=== PATIENT | male | born 1945 | race Caucasian/White ===

== ENCOUNTER 2018-05-05 06:56 | Day surgery (SDC) | payer OTHER ==
[~2018-05-05] VITALS: Ht 182.9 cm; Wt 99.0 kg
[~2018-05-05 06:56] MED LIST: ACET500; ACET500 PO; AMLO5 PO; ASCO500 PO; ASPI325 PO; ASPI81CH PO; ATOR80 PO; ATORVASTATIN; Aspirin EC325 MG PO; Aspirin EC81 MG PO; Bactrim Ds Tab1 EACH PO; CHLO25B PO; CLOP75 PO; Colace100 MG PO; Coq-10100 MG PO; DESI25 PO; DOCU100 PO; DOK100 MG PO; DONE10 PO; ERGO400 PO; FENO145 PO; FERRETTS325 MG; FURO40 PO; Ferrous Sulfat325 M2 PO; GABA600 PO; HYDACE10B PO; HYDR1TAB94 PO; Humalog100 UNIT/1; Humulin N100 UNIT/1; INSR10I SC; INSR10I SUBQ; INSUASPI SC; INSUASPI SUBQ; INSULANPEN; INSULANPEN SC; INSULIN GLARGINE SC; ISODIN20 PO; ISOMON20 PO; ISOMON60ER PO; Isosorbide Mono30 MG PO; LEVFLO500 PO; LIDOCAINE PATCH; LISI20 PO; LISI5 PO; MEMA5TAB; MEMA5TAB PO; METF500 PO; METF500C PO; METO100ER PO; METO2.5 PO; METO50 PO; MIRALAX17 GM PO; Milk Of Ma400 MG/5 M PO; NITR.4SL SL; Novolog Fl100 UNIT/1 SC; OXYC5 PO; PANT40 PO; POTCHL10ER PO; PRED10 PO; PREG75 PO; PREGABALIN 75 MG; Percocet 10-321 EACH PO; Percocet 5-3251 EACH PO; Prednisone20 MG PO; Prinivil10 MG PO; RANI150EL PO; RANO500T PO; Ranexa1000 MG PO; Ranitidine HCl150 M1 PO; SENN187 PO; TRAM50 PO; VITAMIN D22000 UNIT PO; [UNRECOGNIZED DRUG - OTHER]
== END 2018-05-05 18:32 | disposition home or self-care (01) ==
LOC: MHTC 06:56 → ICUW 15:58 → MHTC 18:32
PROC: 04CK3ZZ Extirpation of Matter from Right Femoral Artery, Percutaneous Approach (ICD-10-PCS; principal; 2018-05-05)
PROC: 047K3Z1 Dilation of Right Femoral Artery using Drug-Coated Balloon, Percutaneous Approach (ICD-10-PCS; principal; 2018-05-05)
DX: E11.51 Type 2 diabetes mellitus with diabetic peripheral angiopathy without gangrene (principal); I70.211 Atherosclerosis of native arteries of extremities with intermittent claudication, right leg; Z79.4 Long term (current) use of insulin; E11.40 Type 2 diabetes mellitus with diabetic neuropathy, unspecified; E78.5 Hyperlipidemia, unspecified; Z87.891 Personal history of nicotine dependence; G47.33 Obstructive sleep apnea (adult) (pediatric); I10 Essential (primary) hypertension
CPT/HCPCS: 37225; 75630; 75774; 82947; 85347; 99152; 99153; C1724; C1725; C1769; C1884; C1887; C2623; J1644; J2060; J2250; J2720; J3010; J7030; J7040; Q9967

== ENCOUNTER 2019-01-04 08:42 | Day surgery (SDC) | payer OTHER ==
[~2019-01-04] VITALS: Ht 182.9 cm; Wt 100.0 kg
[~2019-01-04 08:42] MED LIST changes: +Ferosul325 MG PO; +Humalog Mi100 UNIT/4 SC; +LIDOCAINE PAIN1 EACH TOP; -MEMA5TAB; +Novolog100 UNIT/2 SC; +OMEG1CAP30 PO; -RANI150EL PO; +XARELTO2.5 MG PO; +Zantac150 MG PO
[2019-01-04] MEDS ORDERED: CLOP75 PO (09:19)
[2019-01-04] MEDS ORDERED: ASCO500 PO (09:24)
[2019-01-04] MEDS ORDERED: MEMA5TAB PO (09:25)
[2019-01-04] MEDS ORDERED: Omega-31000 MG PO (09:28)
--- NOTE | 2019-01-04 11:27 | NUR ---
PT ARRIVED BACK ON BED. PT A&O X 3. CALL LIGHT IN REACH. PT'S IN ROOM. PT DENIES CP. LEFT FEMORAL GROIN SITE SOFT NON-TENDER WITH NO HEMATOMA, NO PULSATILE BLEEDING AND INTACT DRESSING.
--- NOTE | 2019-01-04 12:27 | NUR ---
PT EATING LUNCH. LEFT GROIN SITE SOFT NON-TENDER WITH NO HEMATOMA,NO PULSATILE BLEEDING AND INTACT DRESSING.
--- NOTE | 2019-01-04 12:42 | NUR ---
DR LANDEROS MADE AWARE PT IT TAKING XARELTO 2.5 MG BID. SEE NEW ORDERS FOR PLAVIX.
[2019-01-04] MEDS ORDERED: XARELTO2.5 MG PO (12:45)
--- NOTE | 2019-01-04 13:14 | NUR ---
PT ABULATED TO BR TO VOID. LEFT GROIN SITE SOFT NON-TENDER WITH NO HEMATOMA AND NO PULSATILE BLEEDING. DRESSING INTACT.
--- NOTE | 2019-01-04 14:34 | NUR ---
DISCHARGE INSTRUCTIONS REVIEWED ALL QUESTIONS ANSWERED.20 G IV DISCONTINUED FROM LEFT AC WITH INTACT CANNULA. PT ESCORTED OUT VIA WHEELCHAIR ESCORT.
== END 2019-01-04 14:30 | disposition home or self-care (01) ==
LOC: MHTC 08:42
DX: E11.51 Type 2 diabetes mellitus with diabetic peripheral angiopathy without gangrene (principal); I70.203 Unspecified atherosclerosis of native arteries of extremities, bilateral legs; I25.10 Atherosclerotic heart disease of native coronary artery without angina pectoris; I10 Essential (primary) hypertension; E78.5 Hyperlipidemia, unspecified
CPT/HCPCS: 37224; 37228; 75710; 82947; 99152; 99153; C1725; C1760; C1769; C1887; C1894; C2623; J1644; J2250; J3010; J7030; Q9967

== ENCOUNTER 2019-11-22 04:04 | Emergency (ER) | payer OTHER, MEDICARE ==
[~2019-11-22] VITALS: Ht 180.3 cm; Wt 81.7 kg
[~2019-11-22 04:04] MED LIST changes: +Omega-31000 MG PO
[2019-11-22] MEDS ORDERED: Flector1 EACH UD (06:38)
[2019-11-22] MEDS ORDERED: Voltaren100 GM TOP (06:38)
== END 2019-11-22 06:46 | disposition home or self-care (01) ==
LOC: ER 04:04
DX: G89.29 Other chronic pain (principal); M54.5 Low back pain; E11.9 Type 2 diabetes mellitus without complications; I10 Essential (primary) hypertension; I25.10 Atherosclerotic heart disease of native coronary artery without angina pectoris; J44.9 Chronic obstructive pulmonary disease, unspecified; Z88.8 Allergy status to other drugs, medicaments and biological substances; Z79.899 Other long term (current) drug therapy; Z79.82 Long term (current) use of aspirin; Z79.84 Long term (current) use of oral hypoglycemic drugs; Z79.01 Long term (current) use of anticoagulants; Z87.891 Personal history of nicotine dependence
CPT/HCPCS: 96372; 99283-25; J1885

== ENCOUNTER 2020-03-21 18:11 | Observation (INO) | payer OTHER, MEDICARE ==
[~2020-03-21] VITALS: Ht 185.4 cm; Wt 113.0 kg
[~2020-03-21 18:11] MED LIST changes: +Flector1 EACH UD; +Voltaren100 GM TOP
[2020-03-21 18:47] LABS: BASOPHILS ABSOLUTE AUTO 0.05 K/mm3 (0.00-0.23); BASOPHILS PERCENT AUTO 1 % (0-2); EOSINOPHILS ABSOLUTE AUTO 0.25 K/mm3 (0.00-0.68); EOSINOPHILS PERCENT AUTO 4 % (0-6); Hematocrit 46.3 % (37.0-53.0); Hemoglobin 15.1 g/dL (13.5-17.5); IMMATURE GRAN ABSOLUTE AUTO 0.01 K/mm3 (0.00-0.10); IMMATURE GRAN PERCENT AUTO 0 % (0-1); LYMPHOCYTES ABSOLUTE AUTO 2.19 K/mm3 (0.84-5.20); LYMPHOCYTES PERCENT AUTO 31 % (21-46); MONOCYTES ABSOLUTE AUTO 0.63 K/mm3 (0.16-1.47); MONOCYTES PERCENT AUTO 9 % (4-13); Mean Corpuscular HGB 31.5 pg (26.0-34.0); Mean Corpuscular HGB Conc 32.6 g/dL (31.5-36.5); Mean Corpuscular Volume 97 fL (80-100); Mean Platelet Volume 9.4 fL (9.1-12.4); NEUTROPHILS ABSOLUTE AUTO 3.89 K/mm3 (1.96-9.15); NEUTROPHILS PERCENT AUTO 55 % (41-73); Platelet Count 248 K/mm3 (150-400); RDW Coefficient Variation 13.5 % (11.7-14.2); RDW Standard Deviation 48.6 fL (35.1-46.3); White Blood Cell Count 7.02 K/mm3 (4.00-11.30)
[2020-03-21 19:11] LABS: Alanine Aminotransfer (ALT/SGP 46 U/L (12-78); Albumin, Blood 4.2 g/dL (3.4-5.0); Albumin/Globulin Ratio 1.1 (0.8-1.8); Alk Phos 53 U/L (50-136); Anion Gap 6 mmol/L (6-16); Aspartate Aminotrans (AST/SGOT 37 U/L (12-37); Bilirubin, Total 0.9 mg/dL (0.1-1.0); Blood Urea Nitrogen 20 mg/dL (8-24); Bun/Creatinine Ratio 16.1 (12.0-20.0); CO2, Blood 33 mmol/L (21-32); Calcium, Blood 9.7 mg/dL (8.5-10.1); Chloride, Blood 104 mmol/L (98-108); Creatinine, Blood 1.24 mg/dL (0.60-1.20); Globulin, Blood 3.8 g/dL (2.2-4.0); Glomerular Filtration Rate >60 (60-); Glucose, Blood 164 mg/dL (70-99); Potassium, Blood 3.6 mmol/L (3.5-5.5); Sodium, Blood 143 mmol/L (136-145); Troponin I 0.249 ng/mL (0.000-0.040)
[2020-03-21] MEDS ORDERED: NEBI10 PO (20:27)
[2020-03-21] MEDS ORDERED: FURO80 PO (20:28)
[2020-03-21] MEDS ORDERED: LOSA50 PO (20:29)
[2020-03-21] MEDS ORDERED: JARDIANCE25 MG PO (20:30)
[2020-03-21] MEDS ORDERED: REPATHA SY140 MG/1 M SC (20:31)
[2020-03-21] MEDS ORDERED: INSULANPEN SC (20:32)
[2020-03-21] MEDS ORDERED: NOVOLOG100 UNIT/1 SC ×2 (20:33→20:34)
[2020-03-21] MEDS ORDERED: ACET500 PO (20:35)
[2020-03-21 20:54] LABS: PCO2 Arterial 40.9 mmHg (35-45); PO2 Arterial 74.9 mmHg (80-100); pH Blood Arterial 7.44 (7.35-7.45)
[2020-03-21 20:57] LABS: Magnesium, Blood 2.5 mg/dL (1.6-2.4)
[2020-03-22 05:57] LABS: BASOPHILS ABSOLUTE AUTO 0.06 K/mm3 (0.00-0.23); BASOPHILS PERCENT AUTO 1 % (0-2); EOSINOPHILS ABSOLUTE AUTO 0.21 K/mm3 (0.00-0.68); EOSINOPHILS PERCENT AUTO 4 % (0-6); Hematocrit 43.6 % (37.0-53.0); Hemoglobin 14.3 g/dL (13.5-17.5); IMMATURE GRAN ABSOLUTE AUTO 0.01 K/mm3 (0.00-0.10); IMMATURE GRAN PERCENT AUTO 0 % (0-1); LYMPHOCYTES ABSOLUTE AUTO 2.04 K/mm3 (0.84-5.20); LYMPHOCYTES PERCENT AUTO 34 % (21-46); MONOCYTES ABSOLUTE AUTO 0.56 K/mm3 (0.16-1.47); MONOCYTES PERCENT AUTO 9 % (4-13); Mean Corpuscular HGB 31.3 pg (26.0-34.0); Mean Corpuscular HGB Conc 32.8 g/dL (31.5-36.5); Mean Corpuscular Volume 95 fL (80-100); Mean Platelet Volume 9.2 fL (9.1-12.4); NEUTROPHILS ABSOLUTE AUTO 3.19 K/mm3 (1.96-9.15); NEUTROPHILS PERCENT AUTO 53 % (41-73); Platelet Count 197 K/mm3 (150-400); RDW Coefficient Variation 13.5 % (11.7-14.2); RDW Standard Deviation 47.7 fL (35.1-46.3); Red Blood Cell Count 4.57 M/mm3 (4.30-5.90); White Blood Cell Count 6.07 K/mm3 (4.00-11.30)
--- NOTE | 2020-03-22 06:03 | NUR ---
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 PT C/O OF PAIN & "LOCKING" SENSATIN IN HIS LEFT HAND/FINGERS, IT WAS XRAYED IN ER PRIOR TO ADMISSION TO THE FLOOR, SLIGHT REDNESS & SWELLING NOTED THIS AM, ICE PACK WAS GIVEN PER PT REQUEST. PT HAS BEEN AWAKE THROUGH THE NIGHT WATCHING TV. TOLERATING PO INTAKE, VOIDING WNL. CALL LIGHT IN REACH, WCTM & REPORT TO DAY RN
[2020-03-22 06:21] LABS: Alanine Aminotransfer (ALT/SGP 39 U/L (12-78); Albumin, Blood 3.4 g/dL (3.4-5.0); Alk Phos 41 U/L (50-136); Anion Gap 5 mmol/L (6-16); Aspartate Aminotrans (AST/SGOT 27 U/L (12-37); Bilirubin, Total 1.1 mg/dL (0.1-1.0); Blood Urea Nitrogen 18 mg/dL (8-24); Bun/Creatinine Ratio 16.1 (12.0-20.0); CO2, Blood 26 mmol/L (21-32); Calcium, Blood 8.8 mg/dL (8.5-10.1); Chloride, Blood 108 mmol/L (98-108); Creatinine, Blood 1.12 mg/dL (0.60-1.20); Globulin, Blood 3.4 g/dL (2.2-4.0); Glomerular Filtration Rate >60 (60-); Glucose, Blood 97 mg/dL (70-99); Sodium, Blood 139 mmol/L (136-145); Total Protein, Blood 6.8 g/dL (6.4-8.2); Troponin I 0.269 ng/mL (0.000-0.040)
--- NOTE | 2020-03-22 10:46 | NUR ---
ECHOCARDIOGRAM COMPLETE
--- NOTE | 2020-03-22 18:04 | NUR ---
SHIFT NOTE PT HAS REMAINED FREE OF CP AND SOB T/O THE SHIFT. PT IS A/O X4. ANSWERING QUESTIONS APPROPRIATELY IN FULL SENTENCES. PT IN INDEPENDANT IN THE ROOM, CALLING FAMILY FOR UPDATES. FAMILY WAS ALSO UPDATED BY THIS RN THIS AFTERNOON. PT IS AWARE THAT DR IS AWAITING ECHO RESULTS AND THAT HE HAS BEEN CHANGED TO MEDICAL STATUS. VSS T/O THE SHIFT. TAKES MEDS WELL W/O DIFF. PT HAS BEEN RESTING WELL IN BED W/O DIFF TODAY. NO ACUTE CHANGES DURING THIS SHIFT
--- NOTE | 2020-03-22 18:23 | NUR ---
REPORT CALLED TO GENESIS GONZALEZ ON MEDICAL FLOOR
--- NOTE | 2020-03-22 18:36 | NUR ---
PT ARRIVED TO ROOM 342 VIA W/C FROM ICU. PT A/OX4, INDEP IN TO CHAIR. PT DENIES ANY CP AT THIS TIME. PT ORIENTED TO ROOM AND CALL SYSTEM. CALL LIGHT IN REACH. WILL REPORT TO NIGHT RN.
--- NOTE | 2020-03-23 01:50 | NUR ---
PT HAS INCREASED CONFUSION AND CONTINUES TO DISROBE AND REMOVE TELE LEADS.
--- NOTE | 2020-03-23 05:25 | NUR ---
PT HAS INCREASED CONFUSION
--- NOTE | 2020-03-23 10:57 | NUR ---
PT MEDICATED FOR PAIN WITH OXY AT HOME DOSE. PT STATED ON FOLLOW UP THAT THE PAIN IS NOT ANY BETTER YET "IT TAKES TIME TO WORK." PT STATED IT WORKS BETTER WITH LIDOCAINE PATCHES. DR MARX AT THE BEDSIDE NOW WILL TALK TO HER ABOUT ORDERING THIS.
[2020-03-23] MEDS ORDERED: CARV6.25 PO (12:33)
[2020-03-23] MEDS ORDERED: FAMO20 PO (12:33)
--- NOTE | 2020-03-23 13:32 | NUR ---
DISCARGE NOTE- NAKUL MARX. PT HOME MED REC HAD CARVEDILOL AND NEBEVILOL ON IT MEDS TO CONTINUE HOWEVER PT WAS RECIEVING CARVEDILOL IN PLACE OF THE NEBEVILOL. VERBAL ORDER TO DC CARVEDILOL RECIEVED. PT WAS GIVEN VERBAL AND WRITTEN DISCHARGE INSTRUCTIONS AND ACKNOWLEDGED UNDERSTANDING OF THEM. IV AND TELE WERE DC'D PRIOR TO PT DISCHARGE. PT HAD NO FURTHER QUESTIONS AT THE TIME OF DISCHARGE. PT WAS ESCORTED OUT VIA WC BY THE SOUP PERSON.
== END 2020-03-23 13:10 | disposition home or self-care (01) ==
LOC: ER 18:11 → ICUW 18:12 → ICUE 18:12 → MEDS 03-22 18:33
PROVIDERS: Nurse Practitioner Acute Care; Physician Assistant; ADMIT Internal Medicine
DX: R07.89 Other chest pain (principal); I12.9 Hypertensive chronic kidney disease with stage 1 through stage 4 chronic kidney disease, or unspecified chronic kidney disease; I50.30 Unspecified diastolic (congestive) heart failure; R79.89 Other specified abnormal findings of blood chemistry; S63.615A Unspecified sprain of left ring finger, initial encounter; X58.XXXA Exposure to other specified factors, initial encounter; I25.10 Atherosclerotic heart disease of native coronary artery without angina pectoris; Z95.5 Presence of coronary angioplasty implant and graft; J44.9 Chronic obstructive pulmonary disease, unspecified; G47.33 Obstructive sleep apnea (adult) (pediatric); E11.51 Type 2 diabetes mellitus with diabetic peripheral angiopathy without gangrene; E11.42 Type 2 diabetes mellitus with diabetic polyneuropathy; I44.7 Left bundle-branch block, unspecified; E78.5 Hyperlipidemia, unspecified; G89.29 Other chronic pain; Z95.0 Presence of cardiac pacemaker; Z79.01 Long term (current) use of anticoagulants; Z79.82 Long term (current) use of aspirin; Z79.899 Other long term (current) drug therapy; Z88.8 Allergy status to other drugs, medicaments and biological substances
CPT/HCPCS: 36415; 36600; 71045; 72100; 73130; 80053; 82803; 82947; 83735; 83880; 84484; 85025; 93005; 93010; 93306; 99285-25; A9270; A9270-GY; G0378

== ENCOUNTER 2020-07-26 08:32 | Day surgery (SDC) | payer OTHER ==
[~2020-07-26] VITALS: Ht 182.9 cm; Wt 99.6 kg
[~2020-07-26 08:32] MED LIST changes: +BASAGLAR K100 UNIT/1; +CARV6.25 PO; +CO Q10200 MG PO; +CYCL10 PO; +FAMO20 PO; +FURO80 PO; +JARDIANCE25 MG PO; +LOSA50 PO; +NEBI10 PO; +NOVOLOG100 UNIT/1 SC; +PLAVIX75 MG PO; +REPATHA SY140 MG/1 M SC
--- NOTE | 2020-07-26 09:48 | NUR ---
07/26/20 0948 Kylah Greenberg 1ST IV ATTEMPT IN RFA UNABLE TO CAPTURE VEIN. STARTED BY LISA SCHULTZ 2ND IV ATTEMPT IN RH SUCCESSFUL, STARTED BY LISA SCHULTZ
== END 2020-07-26 11:15 | disposition home or self-care (01) ==
LOC: ORSCSDS 08:32
PROVIDERS: Internal Medicine Gastroenterology
PROC: 0D5H8ZZ Destruction of Cecum, Via Natural or Artificial Opening Endoscopic (ICD-10-PCS; principal; 2020-07-26 10:00)
PROC: 0DBN8ZX Excision of Sigmoid Colon, Via Natural or Artificial Opening Endoscopic, Diagnostic (ICD-10-PCS; principal; 2020-07-26 10:00)
DX: R19.5 Other fecal abnormalities (principal); K92.1 Melena; D12.5 Benign neoplasm of sigmoid colon; Q27.33 Arteriovenous malformation of digestive system vessel; K57.30 Diverticulosis of large intestine without perforation or abscess without bleeding; K64.8 Other hemorrhoids; I10 Essential (primary) hypertension; E11.9 Type 2 diabetes mellitus without complications; Z95.0 Presence of cardiac pacemaker; I25.10 Atherosclerotic heart disease of native coronary artery without angina pectoris; G47.33 Obstructive sleep apnea (adult) (pediatric); Z79.899 Other long term (current) drug therapy
CPT/HCPCS: 82947; J2704; J7120; J7799

== ENCOUNTER 2020-07-27 14:06 | Day surgery (SDC) | payer MEDICARE ==
[~2020-07-27] VITALS: Ht 182.9 cm; Wt 99.2 kg
[~2020-07-27 14:06] MED LIST changes: +BASAGLAR K100 UNIT/1 SC; -INSULANPEN; -NOVOLOG100 UNIT/1 SC; +NOVOLOG100 UNIT/2 SC
--- NOTE | 2020-07-27 15:02 | NUR ---
07/27/20 1502 Kylah Greenberg 1ST IV ATTEMPT IN RH INFILTRATED, STARTED BY LISA SCHULTZ 2ND IV ATTEMPT IN RAC INFLTRATED, STARTED BY LISA SCHULTZ 3RD IV ATTEMPT IN LH SUCCESSFUL, STARTED BY LISA HERRERA
[2020-08-06] MEDS ORDERED: PRALUENT P75 MG/1 ML INJ (08:28)
[2020-08-06] MEDS ORDERED: BASAGLAR K100 UNIT/1 SC (08:30)
== END 2020-07-27 16:23 | disposition home or self-care (01) ==
LOC: ORSCSDS 14:06
PROVIDERS: Internal Medicine Gastroenterology
PROC: 0DBN8ZX Excision of Sigmoid Colon, Via Natural or Artificial Opening Endoscopic, Diagnostic (ICD-10-PCS; principal; 2020-07-27 15:30)
PROC: 0D5H8ZZ Destruction of Cecum, Via Natural or Artificial Opening Endoscopic (ICD-10-PCS; principal; 2020-07-27 15:30)
DX: K92.1 Melena (principal); D12.5 Benign neoplasm of sigmoid colon; K57.30 Diverticulosis of large intestine without perforation or abscess without bleeding; K64.8 Other hemorrhoids; I99.8 Other disorder of circulatory system; I10 Essential (primary) hypertension; E11.9 Type 2 diabetes mellitus without complications; Z95.0 Presence of cardiac pacemaker; Z79.899 Other long term (current) drug therapy
CPT/HCPCS: 82947; 88305; J2405; J2704; J7120

== ENCOUNTER 2020-09-12 09:10 | Emergency (ER) | payer OTHER ==
[~2020-09-12] VITALS: Ht 182.9 cm; Wt 98.9 kg
[~2020-09-12 09:10] MED LIST changes: +ASPIR 8181 M1 PO; +METO50ER PO; +NOVOLOG FL100 UNIT/3 SC; +Norco 5-325 Ta1 EACH PO; +PRALUENT P150 MG/1 M SC; +PRALUENT P75 MG/1 ML INJ; +SIME80CH PO
[2020-09-12] MEDS ORDERED: ASCO500 PO (09:32)
[2020-09-12] MEDS ORDERED: XARELTO20 MG PO (09:34)
[2020-09-12 09:58] LABS: BASOPHILS ABSOLUTE AUTO 0.04 K/mm3 (0.00-0.23); BASOPHILS PERCENT AUTO 1 % (0-2); EOSINOPHILS ABSOLUTE AUTO 0.19 K/mm3 (0.00-0.68); EOSINOPHILS PERCENT AUTO 3 % (0-6); Hematocrit 39.6 % (37.0-53.0); Hemoglobin 12.4 g/dL (13.5-17.5); IMMATURE GRAN ABSOLUTE AUTO 0.01 K/mm3 (0.00-0.10); IMMATURE GRAN PERCENT AUTO 0 % (0-1); LYMPHOCYTES ABSOLUTE AUTO 1.75 K/mm3 (0.84-5.20); LYMPHOCYTES PERCENT AUTO 31 % (21-46); MONOCYTES ABSOLUTE AUTO 0.51 K/mm3 (0.16-1.47); MONOCYTES PERCENT AUTO 9 % (4-13); Mean Corpuscular HGB 26.4 pg (26.0-34.0); Mean Corpuscular HGB Conc 31.3 g/dL (31.5-36.5); Mean Corpuscular Volume 84 fL (80-100); Mean Platelet Volume 9.2 fL (9.1-12.4); NEUTROPHILS ABSOLUTE AUTO 3.15 K/mm3 (1.96-9.15); NEUTROPHILS PERCENT AUTO 56 % (41-73); Platelet Count 286 K/mm3 (150-400); RDW Coefficient Variation 14.5 % (11.7-14.2); RDW Standard Deviation 44.3 fL (35.1-46.3); Red Blood Cell Count 4.69 M/mm3 (4.30-5.90); White Blood Cell Count 5.65 K/mm3 (4.00-11.30)
[2020-09-12 10:15] LABS: Alanine Aminotransfer (ALT/SGP 59 U/L (12-78); Albumin, Blood 3.9 g/dL (3.4-5.0); Alk Phos 58 U/L (50-136); Anion Gap 6 mmol/L (6-16); Aspartate Aminotrans (AST/SGOT 44 U/L (12-37); Bilirubin, Total 0.9 mg/dL (0.1-1.0); Blood Urea Nitrogen 26 mg/dL (8-24); Bun/Creatinine Ratio 22.2 (12.0-20.0); CO2, Blood 26 mmol/L (21-32); Calcium, Blood 9.4 mg/dL (8.5-10.1); Chloride, Blood 108 mmol/L (98-108); Creatinine, Blood 1.17 mg/dL (0.60-1.20); Globulin, Blood 3.9 g/dL (2.2-4.0); Glomerular Filtration Rate >60 (60-); Glucose, Blood 84 mg/dL (70-99); Potassium, Blood 3.7 mmol/L (3.5-5.5); Sodium, Blood 140 mmol/L (136-145); Total Protein, Blood 7.8 g/dL (6.4-8.2)
[2020-09-12 10:24] LABS: Troponin I 0.541 ng/mL (0.000-0.040)
== END 2020-09-12 11:38 | disposition home or self-care (01) ==
LOC: ER 09:10
PROVIDERS: Emergency Medicine
DX: K59.00 Constipation, unspecified (principal); R14.0 Abdominal distension (gaseous); I10 Essential (primary) hypertension; J44.9 Chronic obstructive pulmonary disease, unspecified; I25.10 Atherosclerotic heart disease of native coronary artery without angina pectoris; K21.9 Gastro-esophageal reflux disease without esophagitis; E11.51 Type 2 diabetes mellitus with diabetic peripheral angiopathy without gangrene; Z79.899 Other long term (current) drug therapy; Z88.8 Allergy status to other drugs, medicaments and biological substances; Z79.4 Long term (current) use of insulin; Z79.01 Long term (current) use of anticoagulants; Z79.02 Long term (current) use of antithrombotics/antiplatelets; Z79.82 Long term (current) use of aspirin; Z95.5 Presence of coronary angioplasty implant and graft; Z95.0 Presence of cardiac pacemaker
CPT/HCPCS: 36415; 74022; 80053; 83880; 84484; 85025; 93005; 93010; 99285-25

== ENCOUNTER 2021-01-14 14:52 | Observation (INO) | payer OTHER, MEDICARE ==
[~2021-01-14] VITALS: Ht 182.9 cm; Wt 104.5 kg
[~2021-01-14 14:52] MED LIST changes: +ISOSORBIDE MONO60 MG PO; +LIDO700A20 TD; -LIDOCAINE PAIN1 EACH TOP; +TEMA15 PO; +XARELTO2.5 M1 PO
[2021-01-14 15:48] LABS: Source, Urine Voided
[2021-01-14 15:48] LABS: BASOPHILS ABSOLUTE AUTO 0.06 K/mm3 (0.00-0.23); BASOPHILS PERCENT AUTO 1 % (0-2); EOSINOPHILS ABSOLUTE AUTO 0.14 K/mm3 (0.00-0.68); EOSINOPHILS PERCENT AUTO 2 % (0-6); Hemoglobin 11.6 g/dL (13.5-17.5); IMMATURE GRAN ABSOLUTE AUTO 0.02 K/mm3 (0.00-0.10); IMMATURE GRAN PERCENT AUTO 0 % (0-1); LYMPHOCYTES ABSOLUTE AUTO 2.01 K/mm3 (0.84-5.20); LYMPHOCYTES PERCENT AUTO 32 % (21-46); MONOCYTES ABSOLUTE AUTO 0.49 K/mm3 (0.16-1.47); MONOCYTES PERCENT AUTO 8 % (4-13); Mean Corpuscular HGB 23.2 pg (26.0-34.0); Mean Corpuscular HGB Conc 30.5 g/dL (31.5-36.5); Mean Corpuscular Volume 76 fL (80-100); Mean Platelet Volume 9.2 fL (9.1-12.4); NEUTROPHILS ABSOLUTE AUTO 3.61 K/mm3 (1.96-9.15); NEUTROPHILS PERCENT AUTO 57 % (41-73); Platelet Count 359 K/mm3 (150-400); RDW Coefficient Variation 18.3 % (11.7-14.2); Red Blood Cell Count 5.01 M/mm3 (4.30-5.90); White Blood Cell Count 6.33 K/mm3 (4.00-11.30)
[2021-01-14 15:52] LABS: Bilirubin, Urine Neg (Neg); Blood, Urine Neg (Neg); Glucose Qualitative, Urine 4+ (Neg); Ketones, Urine Neg (Neg); Leukocyte Esterase, Urine Neg (Neg); Nitrite, Urine Neg (Neg); Protein, Urine 1+ (Neg); Specific Gravity, Urine 1.015 (1.003-1.022); Urobilinogen, Urine NORM (Normal); pH, Urine 6.5 (5.0-8.0)
[2021-01-14 15:58] LABS: Appearance, Urine Clear (Clear); Color, Urine Yellow (P-Yellow)
[2021-01-14 16:01] LABS: Albumin, Blood 3.7 g/dL (3.4-5.0); Albumin/Globulin Ratio 1.1 (0.8-1.8); Bilirubin, Total 0.8 mg/dL (0.1-1.0); Bun/Creatinine Ratio 21.4 (12.0-20.0); Calcium, Blood 9.5 mg/dL (8.5-10.1); Creatinine, Blood 1.26 mg/dL (0.60-1.20); Globulin, Blood 3.5 g/dL (2.2-4.0); Potassium, Blood 4.1 mmol/L (3.5-5.5); Total Protein, Blood 7.2 g/dL (6.4-8.2)
[2021-01-14 16:03] LABS: International Normalized Ratio 0.99; Prothrombin Time Results 10.6 Sec (9.7-11.5)
[2021-01-14] MEDS ORDERED: TEMA15 PO (23:24)
[2021-01-14] MEDS ORDERED: BACITO TOP (23:28)
[2021-01-14] MEDS ORDERED: CYCL10 PO (23:29)
[2021-01-14] MEDS ORDERED: NOVOLOG FL100 UNIT/3 SC (23:35)
[2021-01-14] MEDS ORDERED: METFORMIN HCL1000 M6 PO (23:48)
[2021-01-14] MEDS ORDERED: NITR.4SL SL (23:49)
[2021-01-14] MEDS ORDERED: RANO500T PO (23:50)
[2021-01-14] MEDS ORDERED: ASPI81CH PO (23:52)
[2021-01-14] MEDS ORDERED: FISH OIL 1,2001 EAC7 PO (23:54)
[2021-01-14] MEDS ORDERED: THERA-D2000 UNIT PO (23:55)
[2021-01-14 23:56] LABS: Troponin I 0.508 ng/mL (0.000-0.040)
[2021-01-14] MEDS ORDERED: MIRALAX17 GM PO (23:56)
[2021-01-14] MEDS ORDERED: SENN187 PO (23:56)
[2021-01-15 00:14] LABS: Creatine Kinase MB Index 1.1 (0.0-4.0)
--- NOTE | 2021-01-15 00:21 | NUR ---
SPOKE TO DR. MANSFIELD REGARDING CRITICAL LEVEL OF TROPONIN, PATIENT HAS NO CHEST PAIN AND IS LAYING DOWN TO REST. NO NEW ORDERS TO NOTE.
--- NOTE | 2021-01-15 00:43 | NUR ---
CRISTA WAS ADMITTED TO MEDICAL [facility] FOR CHEST PAIN THAT STARTED AT 1100 TODAY. IT LASTED 20 MINUTES AND HAS NOT HAD CHEST PAIN SINCE THEN. AOX3, INDEPENDENT, WALKED TO THE BATHROOM. LUNGS CLEAR. HR NORMAL S1 S2 WITH SLIGHT MURMUR. NO CHEST PAIN, DIZZINESS, GOOD CAP REFILL, NO HEADACHES, NO CHANGE IN VISION. MILD EDEMA IN BLE. TAKES LASIX AT HOME. NO OTHER PAIN TO NOTE. BP SLIGHTLY ELEVATED. ORIENTED TO THE ROOM. ADMINISTERED MEDS. TELE PLACED SINUS. TROPININ CAME BACK CRITICAL AT 0.508. NOTIFIED. CALL LIGHT IN REACH.
--- NOTE | 2021-01-15 05:32 | NUR ---
SHIFT SUMMARY: AOX3, INDEPENDENT IN THE ROOM. HAD CP YESTERDAY AT 1100 THAT LASTED 20 MINUTES, WAS CARRYING BAGS IN FROM CAR. NO CP, PALPITATIONS OR OTHER SYSMPTOMS SINCE ARRIVAL. TELE REPORTS SINUS IN THE 70'S. HR WITH SLIGHT MURMUR. LUNGS CLEAR. VS WNL, AFEBRILE. TROPONIN WAS CRITICAL AT 0.508, NOTIFIED, NO NEW ORDERS. APPT 22.7. GOOD APPETITE, MILD +1 EDEMA IN BLE. NO OTHER CHANGES TO NOTE. CALL LIGHT IS IN REACH.
[2021-01-15 07:04] LABS: BASOPHILS ABSOLUTE AUTO 0.05 K/mm3 (0.00-0.23); BASOPHILS PERCENT AUTO 1 % (0-2); EOSINOPHILS ABSOLUTE AUTO 0.24 K/mm3 (0.00-0.68); EOSINOPHILS PERCENT AUTO 4 % (0-6); Hematocrit 37.1 % (37.0-53.0); Hemoglobin 11.4 g/dL (13.5-17.5); IMMATURE GRAN ABSOLUTE AUTO 0.01 K/mm3 (0.00-0.10); IMMATURE GRAN PERCENT AUTO 0 % (0-1); LYMPHOCYTES ABSOLUTE AUTO 1.45 K/mm3 (0.84-5.20); LYMPHOCYTES PERCENT AUTO 21 % (21-46); MONOCYTES ABSOLUTE AUTO 0.52 K/mm3 (0.16-1.47); MONOCYTES PERCENT AUTO 8 % (4-13); Mean Corpuscular HGB 23.3 pg (26.0-34.0); Mean Corpuscular HGB Conc 30.7 g/dL (31.5-36.5); Mean Corpuscular Volume 76 fL (80-100); NEUTROPHILS ABSOLUTE AUTO 4.66 K/mm3 (1.96-9.15); NEUTROPHILS PERCENT AUTO 67 % (41-73); Platelet Count 321 K/mm3 (150-400); RDW Coefficient Variation 18.4 % (11.7-14.2); RDW Standard Deviation 50.4 fL (35.1-46.3); White Blood Cell Count 6.93 K/mm3 (4.00-11.30)
[2021-01-15 07:31] LABS: Albumin, Blood 3.5 g/dL (3.4-5.0); Bilirubin, Total 0.8 mg/dL (0.1-1.0); Bun/Creatinine Ratio 21.6 (12.0-20.0); Calcium, Blood 9.1 mg/dL (8.5-10.1); Creatinine, Blood 1.25 mg/dL (0.60-1.20); Globulin, Blood 3.4 g/dL (2.2-4.0); Potassium, Blood 4.6 mmol/L (3.5-5.5); Total Protein, Blood 6.9 g/dL (6.4-8.2); Troponin I 0.464 ng/mL (0.000-0.040)
[2021-01-15 07:45] LABS: Creatine Kinase MB Index 1.3 (0.0-4.0)
--- NOTE | 2021-01-15 10:14 | NUR ---
Patent gave consent for care on 01/15/2021 from [id number].
--- NOTE | 2021-01-15 18:20 | NUR ---
SHIFT SUMMARY- PT IS A/O, PLESANT AND COOPERATIVE. HE IS EATING AND DRINKING WELL. HE WAS NPO FOR LUNCH AND RECIEVED THE FIRST PART OF A CARDIAC STRESS TEST. HE WILL RECIEVE THE SECOND PART OF THE STRESS TEST TOMORROW. HIS WAS AT BEDSIDE THIS AFTERNOON. SHE REQUESTED TO SPEAK WITH THE DR. HER NUMBER WAS [facility] TO [facility]. PT HAS BEEN AMBULATING TO THE RESTROOM THIS SHIFT. HE HAS BEEN UP IN THE CHAIR. HE IS CURRENTLY IN BED IN THE LOW POSITION WITH HIS CALL LIGHT LIONEL PAREDES.
--- NOTE | 2021-01-15 22:00 | NUR ---
ASSUMPTION OF CARE. AOX3 JUST FORGETFUL. UP INDEPENDENTLY HAS BEEN WALKING WILKS. NO CHEST PAIN SINCE ARRIVAL. NO OTHER CARDIAC SYMPTOMS WELL. GOOD APPETITE, POOR FLUIDS INTAKE. TRACE EDEMA IN BLE. BANDAID TO BOTTOM SORE INTACT. VS WNL. MEDS GIVEN, CALL LIGHT REMAINES IN REACH.
[2021-01-16 05:25] LABS: BASOPHILS ABSOLUTE AUTO 0.05 K/mm3 (0.00-0.23); BASOPHILS PERCENT AUTO 1 % (0-2); EOSINOPHILS ABSOLUTE AUTO 0.22 K/mm3 (0.00-0.68); EOSINOPHILS PERCENT AUTO 3 % (0-6); Hematocrit 37.9 % (37.0-53.0); Hemoglobin 11.4 g/dL (13.5-17.5); IMMATURE GRAN ABSOLUTE AUTO 0.01 K/mm3 (0.00-0.10); IMMATURE GRAN PERCENT AUTO 0 % (0-1); LYMPHOCYTES ABSOLUTE AUTO 1.98 K/mm3 (0.84-5.20); LYMPHOCYTES PERCENT AUTO 31 % (21-46); MONOCYTES ABSOLUTE AUTO 0.67 K/mm3 (0.16-1.47); MONOCYTES PERCENT AUTO 10 % (4-13); Mean Corpuscular HGB 22.9 pg (26.0-34.0); Mean Corpuscular HGB Conc 30.1 g/dL (31.5-36.5); Mean Corpuscular Volume 76 fL (80-100); Mean Platelet Volume 9.3 fL (9.1-12.4); NEUTROPHILS ABSOLUTE AUTO 3.57 K/mm3 (1.96-9.15); NEUTROPHILS PERCENT AUTO 55 % (41-73); Platelet Count 345 K/mm3 (150-400); RDW Coefficient Variation 18.8 % (11.7-14.2); RDW Standard Deviation 50.6 fL (35.1-46.3); Red Blood Cell Count 4.97 M/mm3 (4.30-5.90)
[2021-01-16 05:51] LABS: Albumin, Blood 3.8 g/dL (3.4-5.0); Bilirubin, Total 1.1 mg/dL (0.1-1.0); Bun/Creatinine Ratio 23.3 (12.0-20.0); Calcium, Blood 9.3 mg/dL (8.5-10.1); Creatinine, Blood 1.33 mg/dL (0.60-1.20); Globulin, Blood 3.8 g/dL (2.2-4.0); Magnesium, Blood 2.4 mg/dL (1.6-2.4); Phosphorus, Blood 2.9 mg/dL (2.5-4.9); Potassium, Blood 3.9 mmol/L (3.5-5.5); Total Protein, Blood 7.6 g/dL (6.4-8.2)
--- NOTE | 2021-01-16 05:54 | NUR ---
SHIFT SUMMARY: CRISTA HAS HAD SOME CONFUSION TONIGHT MORE THEN HIS NORMAL FORGETFULNESS. HE HAS WOKEN UP NOT KNOWING WHERE HE IS AT, THINKING HE WAS HOME, REMOVED THE TELE, AND WAS WONDERING AROUND IN THE ROOM LOOKING FOR HIS DOGS. THE SECOND TIME SAME THING HAPPENED BUT THEN HE CALLED HIS ASKING HER WHY SHE WAS NOT HOME AND WHERE THE DOGS WERE AT. SPOKE TO WHO REPORTED THAT HE HAS HAD MILD OCCURANCES LIKE THIS SINCE HIS [place] IN 2017 BUT NOTHING MUCH THIS. SHE REPORTS HIS CONFUSION IS COMING MORE OFTEN AND MORE SEVERE AND IT IS WORRING HERE. HE IS EASILY RE-ORIENTED BUT IT IS VERY BOTHERING TO HIM. SHE REPORTS THE INCREASE HAS HAPPENED OVER THE LAST SEVERAL MONTHS. DOES REPORT HIS MOTHER HAD DEMENTIA AND SHE IS SCARED THAT IS WHAT IS HAPPENING. iT TENDS TO GET WORSE WITH STRESS. OTHER THEN THAT CRISTA HAS BEEN DOING WELL, UP WALKING THE HALLS, NO CHEST PAIN OR OTHER SYMPTOMS BESIDES THE COFUSION. 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 MILD EDEMA IN LEGS. WILL REPORT TO DAYSHIFT, CALL LIGHT IS IN REACH.
[2021-01-16] MEDS ORDERED: METO50ER PO (18:28)
[2021-01-16] MEDS ORDERED: ONDA4ODT MM (18:28)
[2021-01-16] MEDS ORDERED: ACET325 PO (18:28)
--- NOTE | 2021-01-16 19:03 | NUR ---
PT DISCHARGED THE PT VERBALIZED UNDERSTANDING OF THE DC INSTRUCTIONS, THE PTS PRESCRIPTIONS WERE FAXED TO THE [facility] REQUESTED THE PT WAS REMINDED TO CALL HIS PCP AND BEST WORKER TO SCHEDULE FOLLOW UP APPOINTMENTS THE PT WAS TRANSFERED VIA WHEELCHAIR ACCOMPANIED BY THE SANITARY ENGINEERING TEACHER AND HIS , THE PT WAS A/OX4, DENIED C/P AND SOB
[2021-03-19] MEDS ORDERED: Miralax17 GM PO (00:34)
[2021-05-03] MEDS ORDERED: TORS10 PO (02:47)
[2021-05-03] MEDS ORDERED: PREG50 PO (02:48)
[2021-05-03] MEDS ORDERED: OXYCODONE-ACET1 EAC3 PO (18:44)
[2021-05-03] MEDS ORDERED: METAMUCIL POWD575 GM PO (19:28)
[2021-05-05] MEDS ORDERED: FERRIC X-150150 M1 PO (14:49)
[2021-06-02] MEDS ORDERED: CYCL10 PO (14:09)
[2021-06-02] MEDS ORDERED: FERSU300 PO (14:09)
== END 2021-01-16 18:49 | disposition home or self-care (01) ==
LOC: ER 14:52 → ERHOLD 14:53 → MEDS 14:53
PROVIDERS: Emergency Medicine; Family Medicine; ADMIT Internal Medicine
DX: R07.2 Precordial pain (principal); I25.10 Atherosclerotic heart disease of native coronary artery without angina pectoris; E11.51 Type 2 diabetes mellitus with diabetic peripheral angiopathy without gangrene; E78.5 Hyperlipidemia, unspecified; I25.2 Old myocardial infarction; I13.0 Hypertensive heart and chronic kidney disease with heart failure and stage 1 through stage 4 chronic kidney disease, or unspecified chronic kidney disease; E11.22 Type 2 diabetes mellitus with diabetic chronic kidney disease; I50.32 Chronic diastolic (congestive) heart failure; N18.30 Chronic kidney disease, stage 3 unspecified; K21.9 Gastro-esophageal reflux disease without esophagitis; I44.7 Left bundle-branch block, unspecified; C61 Malignant neoplasm of prostate; J44.9 Chronic obstructive pulmonary disease, unspecified; E66.9 Obesity, unspecified; G47.33 Obstructive sleep apnea (adult) (pediatric); Z79.02 Long term (current) use of antithrombotics/antiplatelets; Z79.4 Long term (current) use of insulin; Z79.01 Long term (current) use of anticoagulants; Z88.8 Allergy status to other drugs, medicaments and biological substances; Z95.0 Presence of cardiac pacemaker; Z95.5 Presence of coronary angioplasty implant and graft; Z87.891 Personal history of nicotine dependence; Z68.31 Body mass index [BMI] 31.0-31.9, adult
CPT/HCPCS: 36415; 71045; 78452; 80053; 82550; 82553; 82947; 83690; 83735; 84100; 84484; 85025; 85610; 85730; 93005; 93010; 93017; 96374; 99285-25; A9270; A9500; G0378; J0706; J2785; J3010

== ENCOUNTER 2021-01-30 09:59 | Emergency (ER) | payer OTHER, MEDICARE ==
[~2021-01-30] VITALS: Ht 182.9 cm; Wt 100.7 kg
[~2021-01-30 09:59] MED LIST changes: +ACET325 PO; +BACITO TOP; +FISH OIL 1,2001 EAC7 PO; +METFORMIN HCL1000 M6 PO; +ONDA4ODT MM; +THERA-D2000 UNIT PO
[2021-01-30 11:34] LABS: BASOPHILS ABSOLUTE AUTO 0.05 K/mm3 (0.00-0.23); BASOPHILS PERCENT AUTO 1 % (0-2); EOSINOPHILS ABSOLUTE AUTO 0.21 K/mm3 (0.00-0.68); EOSINOPHILS PERCENT AUTO 4 % (0-6); Hematocrit 36.8 % (37.0-53.0); Hemoglobin 11.4 g/dL (13.5-17.5); IMMATURE GRAN ABSOLUTE AUTO 0.02 K/mm3 (0.00-0.10); IMMATURE GRAN PERCENT AUTO 0 % (0-1); LYMPHOCYTES ABSOLUTE AUTO 1.41 K/mm3 (0.84-5.20); LYMPHOCYTES PERCENT AUTO 24 % (21-46); MONOCYTES ABSOLUTE AUTO 0.49 K/mm3 (0.16-1.47); MONOCYTES PERCENT AUTO 8 % (4-13); Mean Corpuscular HGB 23.6 pg (26.0-34.0); Mean Corpuscular Volume 76 fL (80-100); Mean Platelet Volume 9.3 fL (9.1-12.4); NEUTROPHILS ABSOLUTE AUTO 3.72 K/mm3 (1.96-9.15); NEUTROPHILS PERCENT AUTO 63 % (41-73); Platelet Count 346 K/mm3 (150-400); RDW Coefficient Variation 18.8 % (11.7-14.2); RDW Standard Deviation 51.3 fL (35.1-46.3); Red Blood Cell Count 4.83 M/mm3 (4.30-5.90)
[2021-01-30 11:57] LABS: Bun/Creatinine Ratio 14.5 (12.0-20.0); Calcium, Blood 9.1 mg/dL (8.5-10.1); Creatinine, Blood 1.31 mg/dL (0.60-1.20); Potassium, Blood 4.4 mmol/L (3.5-5.5); Troponin I 0.39 ng/mL (0.000-0.040)
[2021-03-19] MEDS ORDERED: Miralax17 GM PO (00:34)
[2021-05-03] MEDS ORDERED: TORS10 PO (02:47)
[2021-05-03] MEDS ORDERED: PREG50 PO (02:48)
[2021-05-03] MEDS ORDERED: OXYCODONE-ACET1 EAC3 PO (18:44)
[2021-05-03] MEDS ORDERED: METAMUCIL POWD575 GM PO (19:28)
[2021-05-05] MEDS ORDERED: FERRIC X-150150 M1 PO (14:49)
[2021-06-02] MEDS ORDERED: CYCL10 PO (14:09)
[2021-06-02] MEDS ORDERED: FERSU300 PO (14:09)
== END 2021-01-30 12:58 | disposition home or self-care (01) ==
LOC: ER 09:59
PROVIDERS: Emergency Medicine
DX: I11.0 Hypertensive heart disease with heart failure (principal); I50.9 Heart failure, unspecified; E11.51 Type 2 diabetes mellitus with diabetic peripheral angiopathy without gangrene; I25.10 Atherosclerotic heart disease of native coronary artery without angina pectoris; E78.5 Hyperlipidemia, unspecified; K21.9 Gastro-esophageal reflux disease without esophagitis; Z88.8 Allergy status to other drugs, medicaments and biological substances; Z79.899 Other long term (current) drug therapy; Z79.02 Long term (current) use of antithrombotics/antiplatelets; Z79.4 Long term (current) use of insulin; Z79.01 Long term (current) use of anticoagulants
CPT/HCPCS: 36415; 80048; 84484; 85025; 93005; 93010; 96374; 99284-25; J1940

== ENCOUNTER 2021-02-17 09:47 | Emergency (ER) | payer OTHER ==
[~2021-02-17] VITALS: Ht 182.9 cm; Wt 102.1 kg
[2021-02-17 10:31] LABS: BASOPHILS ABSOLUTE AUTO 0.04 K/mm3 (0.00-0.23); BASOPHILS PERCENT AUTO 1 % (0-2); EOSINOPHILS ABSOLUTE AUTO 0.14 K/mm3 (0.00-0.68); EOSINOPHILS PERCENT AUTO 3 % (0-6); Hematocrit 32.8 % (37.0-53.0); IMMATURE GRAN ABSOLUTE AUTO 0.02 K/mm3 (0.00-0.10); IMMATURE GRAN PERCENT AUTO 0 % (0-1); LYMPHOCYTES ABSOLUTE AUTO 1.35 K/mm3 (0.84-5.20); LYMPHOCYTES PERCENT AUTO 27 % (21-46); MONOCYTES ABSOLUTE AUTO 0.45 K/mm3 (0.16-1.47); MONOCYTES PERCENT AUTO 9 % (4-13); Mean Corpuscular HGB 22.6 pg (26.0-34.0); Mean Corpuscular HGB Conc 30.5 g/dL (31.5-36.5); Mean Corpuscular Volume 74 fL (80-100); Mean Platelet Volume 9.2 fL (9.1-12.4); NEUTROPHILS ABSOLUTE AUTO 3.01 K/mm3 (1.96-9.15); NEUTROPHILS PERCENT AUTO 60 % (41-73); Platelet Count 322 K/mm3 (150-400); RDW Coefficient Variation 18.3 % (11.7-14.2); RDW Standard Deviation 48.8 fL (35.1-46.3); Red Blood Cell Count 4.43 M/mm3 (4.30-5.90); White Blood Cell Count 5.01 K/mm3 (4.00-11.30)
[2021-02-17 10:50] LABS: Albumin, Blood 3.8 g/dL (3.4-5.0); Albumin/Globulin Ratio 1.1 (0.8-1.8); Bilirubin, Total 0.7 mg/dL (0.1-1.0); Bun/Creatinine Ratio 17.6 (12.0-20.0); Creatinine, Blood 1.31 mg/dL (0.60-1.20); Globulin, Blood 3.5 g/dL (2.2-4.0); Potassium, Blood 3.9 mmol/L (3.5-5.5); Total Protein, Blood 7.3 g/dL (6.4-8.2); Troponin I 0.301 ng/mL (0.000-0.040)
[2021-03-19] MEDS ORDERED: Miralax17 GM PO (00:34)
[2021-05-03] MEDS ORDERED: TORS10 PO (02:47)
[2021-05-03] MEDS ORDERED: PREG50 PO (02:48)
[2021-05-03] MEDS ORDERED: OXYCODONE-ACET1 EAC3 PO (18:44)
[2021-05-03] MEDS ORDERED: METAMUCIL POWD575 GM PO (19:28)
[2021-05-05] MEDS ORDERED: FERRIC X-150150 M1 PO (14:49)
[2021-06-02] MEDS ORDERED: CYCL10 PO (14:09)
[2021-06-02] MEDS ORDERED: FERSU300 PO (14:09)
== END 2021-02-17 11:49 | disposition home or self-care (01) ==
LOC: ER 09:47
PROVIDERS: Emergency Medicine
DX: R10.13 Epigastric pain (principal); R79.89 Other specified abnormal findings of blood chemistry; Z79.4 Long term (current) use of insulin; Z79.02 Long term (current) use of antithrombotics/antiplatelets; Z79.899 Other long term (current) drug therapy
CPT/HCPCS: 36415; 71046; 80053; 83880; 84484; 85025; 93005; 93010; 99285-25

== ENCOUNTER 2021-03-13 01:01 | Observation (INO) | payer OTHER, MEDICARE ==
[~2021-03-13] VITALS: Ht 182.9 cm; Wt 105.7 kg
[~2021-03-13 01:01] MED LIST changes: -FISH OIL 1,2001 EAC7 PO; +FISH OIL PO; -ISOSORBIDE MONO60 MG PO; +ISOSORBIDE MONONITRA PO; -LIDO700A20 TD; +LIDO700A20 TOP
[2021-03-13 03:38] LABS: BASOPHILS ABSOLUTE AUTO 0.05 K/mm3 (0.00-0.23); BASOPHILS PERCENT AUTO 1 % (0-2); EOSINOPHILS ABSOLUTE AUTO 0.19 K/mm3 (0.00-0.68); EOSINOPHILS PERCENT AUTO 3 % (0-6); Hematocrit 32.3 % (37.0-53.0); Hemoglobin 9.6 g/dL (13.5-17.5); IMMATURE GRAN ABSOLUTE AUTO 0.03 K/mm3 (0.00-0.10); IMMATURE GRAN PERCENT AUTO 0 % (0-1); LYMPHOCYTES PERCENT AUTO 23 % (21-46); MONOCYTES ABSOLUTE AUTO 0.58 K/mm3 (0.16-1.47); MONOCYTES PERCENT AUTO 8 % (4-13); Mean Corpuscular HGB 21.7 pg (26.0-34.0); Mean Corpuscular HGB Conc 29.7 g/dL (31.5-36.5); Mean Corpuscular Volume 73 fL (80-100); NEUTROPHILS ABSOLUTE AUTO 4.93 K/mm3 (1.96-9.15); NEUTROPHILS PERCENT AUTO 66 % (41-73); Platelet Count 360 K/mm3 (150-400); RDW Coefficient Variation 18.2 % (11.7-14.2); RDW Standard Deviation 47.5 fL (35.1-46.3); Red Blood Cell Count 4.43 M/mm3 (4.30-5.90); White Blood Cell Count 7.48 K/mm3 (4.00-11.30)
[2021-03-13 04:01] LABS: Albumin, Blood 3.7 g/dL (3.4-5.0); Albumin/Globulin Ratio 1.1 (0.8-1.8); Bilirubin, Total 0.8 mg/dL (0.1-1.0); Bun/Creatinine Ratio 18.5 (12.0-20.0); Calcium, Blood 8.3 mg/dL (8.5-10.1); Creatinine, Blood 1.51 mg/dL (0.60-1.20); Globulin, Blood 3.5 g/dL (2.2-4.0); Magnesium, Blood 2.7 mg/dL (1.6-2.4); Phosphorus, Blood 2.4 mg/dL (2.5-4.9); Potassium, Blood 4.4 mmol/L (3.5-5.5); Total Protein, Blood 7.2 g/dL (6.4-8.2); Troponin I 0.284 ng/mL (0.000-0.040)
[2021-03-13 04:02] LABS: Source, Urine Clean Catch
[2021-03-13 04:06] LABS: Bilirubin, Urine Neg (Neg); Blood, Urine Neg (Neg); Glucose Qualitative, Urine 4+ (Neg); Ketones, Urine Neg (Neg); Leukocyte Esterase, Urine Neg (Neg); Nitrite, Urine Neg (Neg); Protein, Urine Neg (Neg); Urobilinogen, Urine NORM (Normal)
[2021-03-13 04:07] LABS: Appearance, Urine Clear (Clear); Color, Urine Yellow (P-Yellow)
[2021-03-19] MEDS ORDERED: Miralax17 GM PO (00:34)
== END 2021-03-13 12:27 | disposition home or self-care (01) ==
LOC: ER 01:01 → ERHOLD 01:02 → ER 08:50 → ERHOLD 08:50
PROVIDERS: Emergency Medicine; ADMIT Internal Medicine
DX: R79.89 Other specified abnormal findings of blood chemistry (principal); I25.10 Atherosclerotic heart disease of native coronary artery without angina pectoris; I11.0 Hypertensive heart disease with heart failure; I50.42 Chronic combined systolic (congestive) and diastolic (congestive) heart failure; E11.51 Type 2 diabetes mellitus with diabetic peripheral angiopathy without gangrene; E78.5 Hyperlipidemia, unspecified; E66.9 Obesity, unspecified; G47.30 Sleep apnea, unspecified; K21.9 Gastro-esophageal reflux disease without esophagitis; I25.2 Old myocardial infarction; Z85.46 Personal history of malignant neoplasm of prostate; Z79.01 Long term (current) use of anticoagulants; Z79.4 Long term (current) use of insulin; Z79.899 Other long term (current) drug therapy; Z88.8 Allergy status to other drugs, medicaments and biological substances
CPT/HCPCS: 36415; 71045; 80053; 81003; 83690; 83735; 83880; 84100; 84484; 85025; 93005; 93010; 96374; 99285-25; A9270; A9270-GY; G0378; J1815; J1940

== ENCOUNTER 2021-03-30 08:44 | Emergency (ER) | payer OTHER, MEDICARE ==
[~2021-03-30] VITALS: Ht 182.9 cm; Wt 100.7 kg
[~2021-03-30 08:44] MED LIST changes: +FISH OIL 1,2001 EAC7 PO; -FISH OIL PO; +ISOSORBIDE MONO60 MG PO; -ISOSORBIDE MONONITRA PO; +LIDO700A20 TD; -LIDO700A20 TOP; +Miralax17 GM PO
[2021-05-03] MEDS ORDERED: TORS10 PO (02:47)
[2021-05-03] MEDS ORDERED: PREG50 PO (02:48)
[2021-05-03] MEDS ORDERED: OXYCODONE-ACET1 EAC3 PO (18:44)
[2021-05-03] MEDS ORDERED: METAMUCIL POWD575 GM PO (19:28)
[2021-05-05] MEDS ORDERED: FERRIC X-150150 M1 PO (14:49)
[2021-06-02] MEDS ORDERED: FERSU300 PO (14:09)
[2021-06-02] MEDS ORDERED: CYCL10 PO (14:09)
== END 2021-03-30 11:30 | disposition home or self-care (01) ==
LOC: ER 08:44
DX: M54.5 Low back pain (principal); G89.29 Other chronic pain; M62.830 Muscle spasm of back; E11.9 Type 2 diabetes mellitus without complications; I11.0 Hypertensive heart disease with heart failure; I50.9 Heart failure, unspecified; J44.9 Chronic obstructive pulmonary disease, unspecified; Z87.891 Personal history of nicotine dependence; Z79.899 Other long term (current) drug therapy; Z79.4 Long term (current) use of insulin
CPT/HCPCS: 96372; 99283-25; A9270; J1885

== ENCOUNTER 2021-04-02 04:47 | Emergency (ER) | payer OTHER, MEDICARE ==
[~2021-04-02] VITALS: Ht 182.9 cm; Wt 100.7 kg
[2021-04-02 05:37] LABS: BASOPHILS ABSOLUTE AUTO 0.07 K/mm3 (0.00-0.23); BASOPHILS PERCENT AUTO 1 % (0-2); EOSINOPHILS ABSOLUTE AUTO 0.27 K/mm3 (0.00-0.68); EOSINOPHILS PERCENT AUTO 4 % (0-6); Hematocrit 30.7 % (37.0-53.0); Hemoglobin 9.3 g/dL (13.5-17.5); IMMATURE GRAN ABSOLUTE AUTO 0.03 K/mm3 (0.00-0.10); IMMATURE GRAN PERCENT AUTO 0 % (0-1); LYMPHOCYTES ABSOLUTE AUTO 1.56 K/mm3 (0.84-5.20); LYMPHOCYTES PERCENT AUTO 23 % (21-46); MONOCYTES ABSOLUTE AUTO 0.67 K/mm3 (0.16-1.47); MONOCYTES PERCENT AUTO 10 % (4-13); Mean Corpuscular HGB Conc 30.3 g/dL (31.5-36.5); Mean Corpuscular Volume 73 fL (80-100); Mean Platelet Volume 9.7 fL (9.1-12.4); NEUTROPHILS PERCENT AUTO 62 % (41-73); Platelet Count 358 K/mm3 (150-400); RDW Coefficient Variation 18.3 % (11.7-14.2); RDW Standard Deviation 47.7 fL (35.1-46.3); Red Blood Cell Count 4.22 M/mm3 (4.30-5.90)
[2021-04-02 05:56] LABS: Albumin, Blood 3.5 g/dL (3.4-5.0); Albumin/Globulin Ratio 0.9 (0.8-1.8); Bilirubin, Total 0.6 mg/dL (0.1-1.0); Bun/Creatinine Ratio 19.3 (12.0-20.0); Calcium, Blood 8.6 mg/dL (8.5-10.1); Creatinine, Blood 1.35 mg/dL (0.60-1.20); Globulin, Blood 3.7 g/dL (2.2-4.0); Potassium, Blood 4.2 mmol/L (3.5-5.5); Total Protein, Blood 7.2 g/dL (6.4-8.2)
[2021-04-02 06:30] LABS: Source, Urine Voided
[2021-04-02 06:33] LABS: Bilirubin, Urine Neg (Neg); Blood, Urine Neg (Neg); Glucose Qualitative, Urine 4+ (Neg); Ketones, Urine Neg (Neg); Leukocyte Esterase, Urine Neg (Neg); Nitrite, Urine Neg (Neg); Protein, Urine Neg (Neg); Specific Gravity, Urine 1.015 (1.003-1.022); Urobilinogen, Urine NORM (Normal)
[2021-04-02 06:46] LABS: Appearance, Urine Clear (Clear); Color, Urine Yellow (P-Yellow)
[2021-04-02] MEDS ORDERED: SIME40L PO (08:31)
[2021-05-03] MEDS ORDERED: TORS10 PO (02:47)
[2021-05-03] MEDS ORDERED: PREG50 PO (02:48)
[2021-05-03] MEDS ORDERED: OXYCODONE-ACET1 EAC3 PO (18:44)
[2021-05-03] MEDS ORDERED: METAMUCIL POWD575 GM PO (19:28)
[2021-05-05] MEDS ORDERED: FERRIC X-150150 M1 PO (14:49)
[2021-06-02] MEDS ORDERED: FERSU300 PO (14:09)
[2021-06-02] MEDS ORDERED: CYCL10 PO (14:09)
== END 2021-04-02 08:47 | disposition home or self-care (01) ==
LOC: ER 04:47
PROVIDERS: Emergency Medicine
DX: R10.9 Unspecified abdominal pain (principal); R14.0 Abdominal distension (gaseous); Z79.4 Long term (current) use of insulin; Z88.8 Allergy status to other drugs, medicaments and biological substances; Z79.02 Long term (current) use of antithrombotics/antiplatelets
CPT/HCPCS: 36415; 74177; 80053; 81003; 83605; 85025; 99284-25; A9270; Q9967

== ENCOUNTER 2021-04-14 07:55 | Emergency (ER) | payer OTHER, MEDICARE ==
[~2021-04-14] VITALS: Ht 182.9 cm; Wt 103.4 kg
[~2021-04-14 07:55] MED LIST changes: +SIME40L PO
[2021-04-14 09:16] LABS: BASOPHILS ABSOLUTE AUTO 0.05 K/mm3 (0.00-0.23); BASOPHILS PERCENT AUTO 1 % (0-2); EOSINOPHILS ABSOLUTE AUTO 0.32 K/mm3 (0.00-0.68); EOSINOPHILS PERCENT AUTO 5 % (0-6); Hematocrit 32.5 % (37.0-53.0); Hemoglobin 9.6 g/dL (13.5-17.5); IMMATURE GRAN ABSOLUTE AUTO 0.03 K/mm3 (0.00-0.10); IMMATURE GRAN PERCENT AUTO 0 % (0-1); LYMPHOCYTES ABSOLUTE AUTO 1.02 K/mm3 (0.84-5.20); LYMPHOCYTES PERCENT AUTO 15 % (21-46); MONOCYTES ABSOLUTE AUTO 0.55 K/mm3 (0.16-1.47); MONOCYTES PERCENT AUTO 8 % (4-13); Mean Corpuscular HGB Conc 29.5 g/dL (31.5-36.5); Mean Corpuscular Volume 71 fL (80-100); NEUTROPHILS ABSOLUTE AUTO 5.02 K/mm3 (1.96-9.15); NEUTROPHILS PERCENT AUTO 72 % (41-73); Platelet Count 408 K/mm3 (150-400); RDW Coefficient Variation 18.6 % (11.7-14.2); RDW Standard Deviation 46.6 fL (35.1-46.3); Red Blood Cell Count 4.58 M/mm3 (4.30-5.90); White Blood Cell Count 6.99 K/mm3 (4.00-11.30)
[2021-04-14 09:38] LABS: Albumin, Blood 3.5 g/dL (3.4-5.0); Albumin/Globulin Ratio 0.9 (0.8-1.8); Bilirubin, Total 0.6 mg/dL (0.1-1.0); Bun/Creatinine Ratio 19.2 (12.0-20.0); Calcium, Blood 8.9 mg/dL (8.5-10.1); Creatinine, Blood 1.46 mg/dL (0.60-1.20); Globulin, Blood 4.1 g/dL (2.2-4.0); Potassium, Blood 4.4 mmol/L (3.5-5.5); Total Protein, Blood 7.6 g/dL (6.4-8.2)
[2021-05-03] MEDS ORDERED: TORS10 PO (02:47)
[2021-05-03] MEDS ORDERED: PREG50 PO (02:48)
[2021-05-03] MEDS ORDERED: OXYCODONE-ACET1 EAC3 PO (18:44)
[2021-05-03] MEDS ORDERED: METAMUCIL POWD575 GM PO (19:28)
[2021-05-05] MEDS ORDERED: FERRIC X-150150 M1 PO (14:49)
[2021-06-02] MEDS ORDERED: FERSU300 PO (14:09)
[2021-06-02] MEDS ORDERED: CYCL10 PO (14:09)
== END 2021-04-14 10:05 | disposition home or self-care (01) ==
LOC: ER 07:55
PROVIDERS: Emergency Medicine
DX: K80.20 Calculus of gallbladder without cholecystitis without obstruction (principal); E11.9 Type 2 diabetes mellitus without complications; I11.0 Hypertensive heart disease with heart failure; I50.9 Heart failure, unspecified; I25.10 Atherosclerotic heart disease of native coronary artery without angina pectoris; J44.9 Chronic obstructive pulmonary disease, unspecified; Z95.5 Presence of coronary angioplasty implant and graft; Z95.0 Presence of cardiac pacemaker; Z88.8 Allergy status to other drugs, medicaments and biological substances; Z79.4 Long term (current) use of insulin; Z79.02 Long term (current) use of antithrombotics/antiplatelets; Z79.899 Other long term (current) drug therapy; Z79.01 Long term (current) use of anticoagulants
CPT/HCPCS: 36415; 80053; 83690; 85025; 99284

== ENCOUNTER 2021-04-18 16:42 | Emergency (ER) | payer MEDICARE, OTHER ==
[~2021-04-18] VITALS: Ht 185.4 cm; Wt 120.7 kg
[2021-04-18 17:17] LABS: BASOPHILS ABSOLUTE AUTO 0.06 K/mm3 (0.00-0.23); BASOPHILS PERCENT AUTO 1 % (0-2); EOSINOPHILS ABSOLUTE AUTO 0.35 K/mm3 (0.00-0.68); EOSINOPHILS PERCENT AUTO 4 % (0-6); Hematocrit 32.5 % (37.0-53.0); Hemoglobin 9.6 g/dL (13.5-17.5); IMMATURE GRAN ABSOLUTE AUTO 0.04 K/mm3 (0.00-0.10); IMMATURE GRAN PERCENT AUTO 1 % (0-1); LYMPHOCYTES ABSOLUTE AUTO 0.91 K/mm3 (0.84-5.20); LYMPHOCYTES PERCENT AUTO 11 % (21-46); MONOCYTES ABSOLUTE AUTO 0.64 K/mm3 (0.16-1.47); MONOCYTES PERCENT AUTO 8 % (4-13); Mean Corpuscular HGB 20.8 pg (26.0-34.0); Mean Corpuscular HGB Conc 29.5 g/dL (31.5-36.5); Mean Corpuscular Volume 71 fL (80-100); Mean Platelet Volume 9.6 fL (9.1-12.4); NEUTROPHILS ABSOLUTE AUTO 6.13 K/mm3 (1.96-9.15); NEUTROPHILS PERCENT AUTO 75 % (41-73); Platelet Count 436 K/mm3 (150-400); RDW Coefficient Variation 19.1 % (11.7-14.2); RDW Standard Deviation 47.5 fL (35.1-46.3); Red Blood Cell Count 4.61 M/mm3 (4.30-5.90); White Blood Cell Count 8.13 K/mm3 (4.00-11.30)
[2021-04-18 17:40] LABS: Albumin, Blood 3.4 g/dL (3.4-5.0); Albumin/Globulin Ratio 0.8 (0.8-1.8); Bilirubin, Total 0.7 mg/dL (0.1-1.0); Bun/Creatinine Ratio 21.8 (12.0-20.0); Calcium, Blood 8.9 mg/dL (8.5-10.1); Creatinine, Blood 1.33 mg/dL (0.60-1.20); Globulin, Blood 4.4 g/dL (2.2-4.0); Potassium, Blood 5.9 mmol/L (3.5-5.5); Total Protein, Blood 7.8 g/dL (6.4-8.2); Troponin I 0.33 ng/mL (0.000-0.040)
[2021-05-03] MEDS ORDERED: TORS10 PO (02:47)
[2021-05-03] MEDS ORDERED: PREG50 PO (02:48)
[2021-05-03] MEDS ORDERED: OXYCODONE-ACET1 EAC3 PO (18:44)
[2021-05-03] MEDS ORDERED: METAMUCIL POWD575 GM PO (19:28)
[2021-05-05] MEDS ORDERED: FERRIC X-150150 M1 PO (14:49)
[2021-06-02] MEDS ORDERED: FERSU300 PO (14:09)
[2021-06-02] MEDS ORDERED: CYCL10 PO (14:09)
== END 2021-04-18 19:12 | disposition home or self-care (01) ==
LOC: ER 16:42
PROVIDERS: Physician Assistant
DX: I11.0 Hypertensive heart disease with heart failure (principal); I50.9 Heart failure, unspecified; E11.9 Type 2 diabetes mellitus without complications; I25.10 Atherosclerotic heart disease of native coronary artery without angina pectoris; J44.9 Chronic obstructive pulmonary disease, unspecified; I25.2 Old myocardial infarction; Z79.4 Long term (current) use of insulin; Z95.5 Presence of coronary angioplasty implant and graft; Z79.899 Other long term (current) drug therapy
CPT/HCPCS: 36415; 71046; 80053; 83880; 84484; 85025; 93005; 93010; 96374; 99285-25; J1940

== ENCOUNTER 2021-04-26 16:59 | Emergency (ER) | payer OTHER, MEDICARE ==
[~2021-04-26] VITALS: Ht 182.9 cm; Wt 99.8 kg
[2021-04-26 17:28] LABS: BASOPHILS ABSOLUTE AUTO 0.06 K/mm3 (0.00-0.23); BASOPHILS PERCENT AUTO 1 % (0-2); EOSINOPHILS ABSOLUTE AUTO 0.43 K/mm3 (0.00-0.68); EOSINOPHILS PERCENT AUTO 5 % (0-6); Hematocrit 33.9 % (37.0-53.0); Hemoglobin 9.7 g/dL (13.5-17.5); IMMATURE GRAN ABSOLUTE AUTO 0.04 K/mm3 (0.00-0.10); IMMATURE GRAN PERCENT AUTO 1 % (0-1); LYMPHOCYTES ABSOLUTE AUTO 1.06 K/mm3 (0.84-5.20); LYMPHOCYTES PERCENT AUTO 13 % (21-46); MONOCYTES ABSOLUTE AUTO 0.61 K/mm3 (0.16-1.47); MONOCYTES PERCENT AUTO 7 % (4-13); Mean Corpuscular HGB Conc 28.6 g/dL (31.5-36.5); Mean Corpuscular Volume 70 fL (80-100); Mean Platelet Volume 9.1 fL (9.1-12.4); NEUTROPHILS ABSOLUTE AUTO 6.09 K/mm3 (1.96-9.15); NEUTROPHILS PERCENT AUTO 73 % (41-73); Platelet Count 472 K/mm3 (150-400); RDW Coefficient Variation 19.2 % (11.7-14.2); RDW Standard Deviation 46.9 fL (35.1-46.3); Red Blood Cell Count 4.85 M/mm3 (4.30-5.90); White Blood Cell Count 8.29 K/mm3 (4.00-11.30)
[2021-04-26 17:45] LABS: Albumin, Blood 3.5 g/dL (3.4-5.0); Albumin/Globulin Ratio 0.8 (0.8-1.8); Bilirubin, Total 0.5 mg/dL (0.1-1.0); Bun/Creatinine Ratio 17.9 (12.0-20.0); Calcium, Blood 9.5 mg/dL (8.5-10.1); Creatinine, Blood 1.45 mg/dL (0.60-1.20); Globulin, Blood 4.5 g/dL (2.2-4.0); Potassium, Blood 4.5 mmol/L (3.5-5.5); Troponin I 0.445 ng/mL (0.000-0.040)
[2021-05-03] MEDS ORDERED: TORS10 PO (02:47)
[2021-05-03] MEDS ORDERED: PREG50 PO (02:48)
[2021-05-03] MEDS ORDERED: OXYCODONE-ACET1 EAC3 PO (18:44)
[2021-05-03] MEDS ORDERED: METAMUCIL POWD575 GM PO (19:28)
[2021-05-05] MEDS ORDERED: FERRIC X-150150 M1 PO (14:49)
[2021-06-02] MEDS ORDERED: FERSU300 PO (14:09)
[2021-06-02] MEDS ORDERED: CYCL10 PO (14:09)
== END 2021-04-26 20:35 | disposition home or self-care (01) ==
LOC: ER 16:59
PROVIDERS: Emergency Medicine
DX: R10.13 Epigastric pain (principal); E11.9 Type 2 diabetes mellitus without complications; J44.9 Chronic obstructive pulmonary disease, unspecified; I25.10 Atherosclerotic heart disease of native coronary artery without angina pectoris; I10 Essential (primary) hypertension; Z95.5 Presence of coronary angioplasty implant and graft; Z79.4 Long term (current) use of insulin; Z79.899 Other long term (current) drug therapy
CPT/HCPCS: 36415; 71045; 74018; 76705; 80053; 83690; 83880; 84484; 85025; 93005; 93010; 96374; 99285-25; A9270; J1940

== ENCOUNTER 2021-04-30 05:39 | Emergency (ER) | payer OTHER, MEDICARE ==
[~2021-04-30] VITALS: Ht 182.9 cm; Wt 100.7 kg
[2021-04-30 07:55] LABS: Calcium, Ionized (POC) 1.22 mmol/L (1.10-1.46); Chloride (POC) 103 mmol/L (98-108); Creatinine (POC) 1.5 mg/dL (0.8-1.3); Glucose (ISTAT POC) 212 mg/dL (70-99); Hemoglobin (POC) 10.5 g/dL (13.5-17.5); Potassium (POC) 4.3 mmol/L (3.5-5.5); Sodium (POC) 135 mmol/L (135-148); Total CO2 (POC) 24 mmol/L (21-32)
[2021-04-30] MEDS ORDERED: PROBIOTIC1 EA13 PO (08:24)
[2021-04-30] MEDS ORDERED: METAMUCIL POWD575 GM PO (08:24)
[2021-05-03] MEDS ORDERED: TORS10 PO (02:47)
[2021-05-03] MEDS ORDERED: PREG50 PO (02:48)
[2021-05-03] MEDS ORDERED: OXYCODONE-ACET1 EAC3 PO (18:44)
[2021-05-03] MEDS ORDERED: METAMUCIL POWD575 GM PO (19:28)
[2021-05-05] MEDS ORDERED: FERRIC X-150150 M1 PO (14:49)
[2021-06-02] MEDS ORDERED: CYCL10 PO (14:09)
[2021-06-02] MEDS ORDERED: FERSU300 PO (14:09)
== END 2021-04-30 08:36 | disposition home or self-care (01) ==
LOC: ER 05:39
PROVIDERS: Emergency Medicine
DX: K59.00 Constipation, unspecified (principal); R60.0 Localized edema; E11.9 Type 2 diabetes mellitus without complications; J44.9 Chronic obstructive pulmonary disease, unspecified; I11.0 Hypertensive heart disease with heart failure; I50.9 Heart failure, unspecified; I25.10 Atherosclerotic heart disease of native coronary artery without angina pectoris; Z95.5 Presence of coronary angioplasty implant and graft; Z95.0 Presence of cardiac pacemaker; Z79.899 Other long term (current) drug therapy; Z79.4 Long term (current) use of insulin
CPT/HCPCS: 74018; 80047; 85014; 99284-25

== ENCOUNTER 2021-05-03 02:23 | Emergency (ER) | payer OTHER, MEDICARE ==
[~2021-05-03] VITALS: Ht 182.9 cm; Wt 102.5 kg
[~2021-05-03 02:23] MED LIST changes: -FERRIC X-150150 M1 PO; -FERSU300 PO; -OXYCODONE-ACET1 EAC3 PO; -PREG50 PO; -TORS10 PO
[2021-05-03] MEDS ORDERED: TORS10 PO ×2 (02:47)
[2021-05-03] MEDS ORDERED: PREG50 PO ×2 (02:48)
[2021-05-03 03:04] LABS: BASOPHILS ABSOLUTE AUTO 0.09 K/mm3 (0.00-0.23); BASOPHILS PERCENT AUTO 1 % (0-2); EOSINOPHILS ABSOLUTE AUTO 0.55 K/mm3 (0.00-0.68); EOSINOPHILS PERCENT AUTO 7 % (0-6); Hematocrit 30.5 % (37.0-53.0); IMMATURE GRAN ABSOLUTE AUTO 0.04 K/mm3 (0.00-0.10); IMMATURE GRAN PERCENT AUTO 1 % (0-1); LYMPHOCYTES ABSOLUTE AUTO 1.49 K/mm3 (0.84-5.20); LYMPHOCYTES PERCENT AUTO 19 % (21-46); MONOCYTES ABSOLUTE AUTO 0.77 K/mm3 (0.16-1.47); MONOCYTES PERCENT AUTO 10 % (4-13); Mean Corpuscular HGB 20.5 pg (26.0-34.0); Mean Corpuscular HGB Conc 29.5 g/dL (31.5-36.5); Mean Corpuscular Volume 70 fL (80-100); NEUTROPHILS ABSOLUTE AUTO 4.86 K/mm3 (1.96-9.15); NEUTROPHILS PERCENT AUTO 62 % (41-73); RDW Coefficient Variation 19.6 % (11.7-14.2); RDW Standard Deviation 47.7 fL (35.1-46.3); Red Blood Cell Count 4.39 M/mm3 (4.30-5.90)
[2021-05-03 03:08] LABS: Mean Platelet Volume 9.4 fL (9.1-12.4); Platelet Count 479 K/mm3 (150-400)
[2021-05-03 03:15] LABS: Albumin, Blood 3.4 g/dL (3.4-5.0); Albumin/Globulin Ratio 0.9 (0.8-1.8); Bilirubin, Total 0.4 mg/dL (0.1-1.0); Bun/Creatinine Ratio 17.3 (12.0-20.0); Calcium, Blood 8.9 mg/dL (8.5-10.1); Creatinine, Blood 1.33 mg/dL (0.60-1.20); Globulin, Blood 3.7 g/dL (2.2-4.0); Potassium, Blood 4.5 mmol/L (3.5-5.5); Total Protein, Blood 7.1 g/dL (6.4-8.2)
[2021-05-03] MEDS ORDERED: OXYCODONE-ACET1 EAC3 PO ×2 (18:44)
[2021-05-03] MEDS ORDERED: METAMUCIL POWD575 GM PO ×2 (19:28)
[2021-06-02] MEDS ORDERED: CYCL10 PO (14:09)
[2021-06-02] MEDS ORDERED: FERSU300 PO (14:09)
== END 2021-05-03 03:33 | disposition home or self-care (01) ==
LOC: ER 02:23
PROVIDERS: Student in an Organized Health Care Education/Training Program
DX: R10.13 Epigastric pain (principal); R14.0 Abdominal distension (gaseous); R60.0 Localized edema; I10 Essential (primary) hypertension; E11.9 Type 2 diabetes mellitus without complications; J44.9 Chronic obstructive pulmonary disease, unspecified; I25.2 Old myocardial infarction; Z95.5 Presence of coronary angioplasty implant and graft; Z87.891 Personal history of nicotine dependence; Z88.8 Allergy status to other drugs, medicaments and biological substances; Z79.899 Other long term (current) drug therapy
CPT/HCPCS: 71046; 80053; 83880; 85025; 99284-25

== ENCOUNTER 2021-05-03 15:26 | Observation (INO) | payer OTHER, MEDICARE ==
[~2021-05-03] VITALS: Ht 182.9 cm; Wt 100.7 kg
--- NOTE | 2021-05-03 03:10 | NUR ---
PT ADMITTED FROM ER AT APPROX 2109 FOR APPENDICITIS. PT C/O SHARP PAIN TO RLQ WITH PALPATION. ABD DISTENDED WITH HYPOACTIVE BT THROUGHOUT. PT MEDICATED WITH 12.5MCG OF FENTANYL PER EMAR. PT ALSO C/O CHRONIC BACK PAIN AND MEDICATED WITH PERCOCET WHICH PT TAKES AT HOME PRN. PT GIVEN K-PAD FOR COMFORT. TELE APPLIED WHICH READS SR W/PVC'S PER CANDLES POURER. PT DENIES CP. VS WNL. WILL KEEP NPO THROUGHOUT NIGHT PER ORDERS.
[~2021-05-03 15:26] MED LIST changes: +PREG50 PO; +TORS10 PO
[2021-05-03 17:11] LABS: Source, Urine Voided
[2021-05-03 17:29] LABS: Appearance, Urine Clear (Clear); Bilirubin, Urine Neg (Neg); Blood, Urine Neg (Neg); Color, Urine Yellow (P-Yellow); Glucose Qualitative, Urine 4+ (Neg); Ketones, Urine Neg (Neg); Leukocyte Esterase, Urine Neg (Neg); Nitrite, Urine Neg (Neg); Protein, Urine Neg (Neg); Urobilinogen, Urine NORM (Normal); pH, Urine 6.5 (5.0-8.0)
[2021-05-03] MEDS ORDERED: OXYCODONE-ACET1 EAC3 PO ×2 (18:44)
[2021-05-03] MEDS ORDERED: METAMUCIL POWD575 GM PO ×2 (19:28)
[2021-05-03 19:52] LABS: SARS-Cov-2 (COVID-19) PCR, MMC NEGATIVE (NEGATIVE)
[2021-05-04 03:42] LABS: BASOPHILS ABSOLUTE AUTO 0.06 K/mm3 (0.00-0.23); BASOPHILS PERCENT AUTO 1 % (0-2); EOSINOPHILS ABSOLUTE AUTO 0.42 K/mm3 (0.00-0.68); EOSINOPHILS PERCENT AUTO 5 % (0-6); Hematocrit 27.8 % (37.0-53.0); Hemoglobin 8.2 g/dL (13.5-17.5); IMMATURE GRAN ABSOLUTE AUTO 0.03 K/mm3 (0.00-0.10); IMMATURE GRAN PERCENT AUTO 0 % (0-1); LYMPHOCYTES PERCENT AUTO 16 % (21-46); MONOCYTES ABSOLUTE AUTO 0.82 K/mm3 (0.16-1.47); MONOCYTES PERCENT AUTO 9 % (4-13); Mean Corpuscular HGB 20.2 pg (26.0-34.0); Mean Corpuscular HGB Conc 29.5 g/dL (31.5-36.5); Mean Corpuscular Volume 69 fL (80-100); Mean Platelet Volume 9.2 fL (9.1-12.4); NEUTROPHILS ABSOLUTE AUTO 6.08 K/mm3 (1.96-9.15); NEUTROPHILS PERCENT AUTO 69 % (41-73); Platelet Count 413 K/mm3 (150-400); RDW Coefficient Variation 19.4 % (11.7-14.2); RDW Standard Deviation 47.1 fL (35.1-46.3); Red Blood Cell Count 4.05 M/mm3 (4.30-5.90); White Blood Cell Count 8.81 K/mm3 (4.00-11.30)
[2021-05-04 04:06] LABS: Bun/Creatinine Ratio 13.1 (12.0-20.0); Calcium, Blood 8.6 mg/dL (8.5-10.1); Creatinine, Blood 1.45 mg/dL (0.60-1.20); Potassium, Blood 3.9 mmol/L (3.5-5.5)
--- NOTE | 2021-05-04 11:27 | NUR ---
PT WENT TAKEN TO PRE-OP AT THIS TIME.
--- NOTE | 2021-05-04 11:38 | NUR ---
LAC IV TENDER WITH PALPATION AND A SMALL REDDENED AREA SURROUNDING INSERTION SITE. NEW 18G IV WAS PLACED IN RFA AND 20G LAC IV REMOVED, CATHETER OBSERVED IN TACT. PT TOLERATED REMOVAL WELL AND NO BLEEDING NOTED AT TIME OF REMOVAL. LIGHT PRESSURE DRESSING APPLIED WITH GAUZE AND COBAN.
--- NOTE | 2021-05-04 13:01 | NUR ---
PATIENT STOOD AT BEDSIDE AND VOIDED INTO URINAL. STEADY ON FEET.
--- NOTE | 2021-05-04 14:13 | NUR ---
05/04/21 1413 Kimberlee Todd NO ANTIBIOTICS IN OR PER DR FRIEND.
--- NOTE | 2021-05-04 16:08 | NUR ---
PT ARRIVED TO THE ROOM AT APPROXIMATELY 1355. PT IS ALERT AND ORIENTED. HE IS PLEASANT AND DENIES ABD PAIN. ABD LAP SITES X3, DRESSING C/D/I. VSS. WILL CONTIUE TO MONITOR.
--- NOTE | 2021-05-04 18:29 | NUR ---
SHIFT SUMMARY: PT IS ALERT AND ORIENTED BUT FORGETFUL. HAD APPENDECTOMY THIS SHIFT AND RETURNED TO UNIT AT 1600, VS WERE WNL, SOME NOTABLE VARIATIONS WITH BLOOD PRESSURE, BUT IS STEADY ON FEET AND DENIES DIZZINESS AND SOB. 3 INCISIONS TO ABD COVERED WITH GAUZE AND CLEAR FILM, NO DRAINAGE, MINIMAL TENDERNESS WITH PALPATION AND DENIES PAIN. SINCE RETURN FROM SURGERY PT IS NOTABLY MORE IMPULSIVE AND HAS ATTEMPTED TO GET UP WITHOUT ASSISTANCE MULTIPLE TIMES, DESPITE MULTIPLE EDUCATION ATTEMPTS AND FREQUENT REMINDERS, STILL COMPLETELY ALERT AND ORIENTED HOWEVER. TAB ALARM PLACED AND CALL LIGHT PLACED WITHIN REACH. ABD BINDER PLACED. WALKED HALLWAYS WITH ELECTRONIC ENGRAVER, USING GAIT BELT, STEADY AND EVEN GAIT OBSERVED AND PT DENIED ANY DISCOMFORT, DIZZINESS OR ANYTHING ABNORMAL WITH AMBULATION. SURGEON STARTED CONTINUOUS IV FLUIDS OF LR AND STARTED IN RFA IV, ALSO SURGEON ORDERED CLEAR LIQUID DIET AND ADVANCE TOLERATED. PT ATE ENTIRE DINNER TRAY OF CLEAR LIQUIDS AND REQUESTED MORE SUBSTANTIAL FOOD, WHICH WAS ORDERED BUT HAS NOT BEEN CONSUMED OF YET.
--- NOTE | 2021-05-04 21:32 | NUR ---
COUGH PRODUCTIVE COUGH NOTED, PT STATES THAT IT FEELS VERY THICK. HAS WATER AT BEDSIDE, PROVIDED WITH TEA PER HIS PEREFERNCE. INSTRUCTED TO BE CAREFUL WITH HOT LIQUIDS, VOICES UNDERSTANDING. SAFETY MEASURES IN PLACE. WILL CONTINUE TO MONITOR AND ADDRESS NEEDS THEY ARISE.
[2021-05-05 03:56] LABS: Hemoglobin 8.7 g/dL (13.5-17.5); Mean Corpuscular HGB 20.1 pg (26.0-34.0); Mean Corpuscular Volume 69 fL (80-100); Mean Platelet Volume 9.1 fL (9.1-12.4); Platelet Count 451 K/mm3 (150-400); RDW Coefficient Variation 19.6 % (11.7-14.2); RDW Standard Deviation 47.6 fL (35.1-46.3); Red Blood Cell Count 4.33 M/mm3 (4.30-5.90); White Blood Cell Count 8.24 K/mm3 (4.00-11.30)
[2021-05-05 04:17] LABS: Bun/Creatinine Ratio 13.8 (12.0-20.0); Creatinine, Blood 1.52 mg/dL (0.60-1.20); Potassium, Blood 4.4 mmol/L (3.5-5.5)
--- NOTE | 2021-05-05 06:08 | NUR ---
SHIFT SUMMARY LYING IN SEMI FOWLERS WITH EYES CLOSED. HAS RESTED OFF AND ON. PT MOANS AND SAYS, "UM HUM" WHEN RESTING WITH EYES CLOSED. RESPIRATIONS EVEN AND UNLABORED ON ROOM AIR. LUNG SOUNDS CLEAR BILATERALLY. ABDOMEN ROUND AND DISTENDED. PT STATES THAT THE GAS BUILDUP IS RETURNING, HAS PASSED FLATUS. ABLE TO AMBULATE TO BATHROOM WITH SBA, FWW, AND GB. IMPROVED BOWEL TONES NOTED FROM START OF SHIFT. RIGHT FA PIV CONTINUES TO REMAIN INTACT WHILE INFUSING LR AT 50ML/HR. ZOSYN HAS INFUSED PER MD ORDERS. LAP SITES X3 TO LOWER ABD ARE C/D/I. ABD BINDER REMAINS IN PLACE. MEDICATED PRN FOR PAIN. DENIES FURTHER NEEDS OR WANTS AT THIS TIME. SAFETY MEASURES IN PLACE. WILL CONTINUE TO MONITOR AND ADDRESS NEEDS THEY ARISE. WILL GIVE HAND OFF TO ONCOMIONG SHIFT USING SBAR DURING BEDSIDE REPORT.
[2021-05-05] MEDS ORDERED: FERRIC X-150150 M1 PO ×2 (14:49)
--- NOTE | 2021-05-05 16:22 | NUR ---
DISCHARGE PT WAS PROVIDED WITH WRITTEN AND VERBAL DISCHARGE INSTRUCTIONS; PT AND HIS SPOUSE REPORTED UNDERSTANDING. PT REPORTS PASSING FLATUS AND HAVING A SMALL BM LAST NIGHT. PT EDUCATED TO MONITOR FOR BLACK TARRY STOOL AT HOME AND TO NOTIFY HIS DOCTOR IF THIS BECOMES AN ISSUE. PT EDUCATED TO MONITOR OUTPUT AND TAKE STOOL SOFTENERS AND PRESCRIBED. PRESCRIPTION FOR IRON REPLACEMENT CALLED AND FAXED BY ANN-MARIE GONZALEZ TO PT'S PHARMACY. PT INSTRUCTED TO FOLLOW-UP WITH PCP REGARDING ANEMIA AND MEMORY DEFICIT, PT AND HIS REPORTED THEY UNDERSTOOD. VSS AT TIME OF DISHCARGE. PT ESCORTED OUT IN W/C AT APPROIMATELY 1556 BY TEVIN WINSTON.
[2021-06-02] MEDS ORDERED: CYCL10 PO (14:09)
[2021-06-02] MEDS ORDERED: FERSU300 PO (14:09)
== END 2021-05-05 15:56 | disposition home or self-care (01) ==
LOC: ER 15:26 → SURS 15:27 → ER 20:02 → SURS 20:02
PROVIDERS: Emergency Medicine; Surgery; ADMIT Internal Medicine
PROC: 0DTJ4ZZ Resection of Appendix, Percutaneous Endoscopic Approach (ICD-10-PCS; principal; 2021-05-04 12:15)
DX: K35.80 Unspecified acute appendicitis (principal); D50.9 Iron deficiency anemia, unspecified; K42.9 Umbilical hernia without obstruction or gangrene; I13.0 Hypertensive heart and chronic kidney disease with heart failure and stage 1 through stage 4 chronic kidney disease, or unspecified chronic kidney disease; E11.22 Type 2 diabetes mellitus with diabetic chronic kidney disease; E11.51 Type 2 diabetes mellitus with diabetic peripheral angiopathy without gangrene; N18.30 Chronic kidney disease, stage 3 unspecified; I50.32 Chronic diastolic (congestive) heart failure; Z20.822 Contact with and (suspected) exposure to COVID-19; I25.10 Atherosclerotic heart disease of native coronary artery without angina pectoris; I44.7 Left bundle-branch block, unspecified; J44.9 Chronic obstructive pulmonary disease, unspecified; G47.33 Obstructive sleep apnea (adult) (pediatric); Z98.1 Arthrodesis status; Z95.0 Presence of cardiac pacemaker; Z95.5 Presence of coronary angioplasty implant and graft; Z95.820 Peripheral vascular angioplasty status with implants and grafts; Z87.891 Personal history of nicotine dependence; Z79.4 Long term (current) use of insulin; Z79.01 Long term (current) use of anticoagulants
CPT/HCPCS: 36415; 70450; 74176; 80048; 81003; 82947; 85025; 85027; 88304; 93005; 93010; 96365-59; 96375; 99285-25; A9270; G0378; J1100; J2370; J2405; J2543; J2704; J2916; J3010; J7120; U0004

== ENCOUNTER → 2021-05-03 | Outpatient (CLI) | payer OTHER, MEDICARE ==
[~2021-05-03] MED LIST changes: +FERRIC X-150150 M1 PO; +FERSU300 PO; +METAMUCIL POWD575 GM PO; +OXYCODONE-ACET1 EAC3 PO; +PREG50 PO; +PROBIOTIC1 EA13 PO; +TORS10 PO
[2021-05-03 14:20] LABS: BASOPHILS ABSOLUTE AUTO 0.07 K/mm3 (0.00-0.23); BASOPHILS PERCENT AUTO 1 % (0-2); EOSINOPHILS ABSOLUTE AUTO 0.37 K/mm3 (0.00-0.68); EOSINOPHILS PERCENT AUTO 4 % (0-6); Hematocrit 29.8 % (37.0-53.0); Hemoglobin 8.8 g/dL (13.5-17.5); IMMATURE GRAN ABSOLUTE AUTO 0.03 K/mm3 (0.00-0.10); IMMATURE GRAN PERCENT AUTO 0 % (0-1); LYMPHOCYTES ABSOLUTE AUTO 1.03 K/mm3 (0.84-5.20); LYMPHOCYTES PERCENT AUTO 10 % (21-46); MONOCYTES ABSOLUTE AUTO 0.92 K/mm3 (0.16-1.47); MONOCYTES PERCENT AUTO 9 % (4-13); Mean Corpuscular HGB 20.3 pg (26.0-34.0); Mean Corpuscular HGB Conc 29.5 g/dL (31.5-36.5); Mean Corpuscular Volume 69 fL (80-100); Mean Platelet Volume 9.1 fL (9.1-12.4); NEUTROPHILS ABSOLUTE AUTO 7.81 K/mm3 (1.96-9.15); NEUTROPHILS PERCENT AUTO 76 % (41-73); Platelet Count 448 K/mm3 (150-400); RDW Coefficient Variation 19.9 % (11.7-14.2); RDW Standard Deviation 47.8 fL (35.1-46.3); Red Blood Cell Count 4.34 M/mm3 (4.30-5.90); White Blood Cell Count 10.23 K/mm3 (4.00-11.30)
[2021-05-03 14:32] LABS: Albumin, Blood 3.3 g/dL (3.4-5.0); Albumin/Globulin Ratio 0.9 (0.8-1.8); Bilirubin, Total 0.9 mg/dL (0.1-1.0); Bun/Creatinine Ratio 13.9 (12.0-20.0); Calcium, Blood 9.4 mg/dL (8.5-10.1); Creatinine, Blood 1.44 mg/dL (0.60-1.20); Globulin, Blood 3.7 g/dL (2.2-4.0); Potassium, Blood 4.2 mmol/L (3.5-5.5)
[2021-05-03 18:54] LABS: Percent Saturation 4.9 % (20.0-50.0)
== END | disposition home or self-care (01) ==
LOC: LAB SHORT 14:16
PROVIDERS: Physician Assistant
DX: K92.2 Gastrointestinal hemorrhage, unspecified (principal); R10.31 Right lower quadrant pain
CPT/HCPCS: 80053; 82728; 83540; 83550; 85025

== ENCOUNTER → 2021-06-12 | Outpatient (CLI) | payer OTHER, MEDICARE | END | disposition home or self-care (01) | LOC: LAB SHORT 12:45 | DX: Z11.59 Encounter for screening for other viral diseases (principal); E11.69 Type 2 diabetes mellitus with other specified complication; D64.9 Anemia, unspecified; I11.0 Hypertensive heart disease with heart failure; I50.9 Heart failure, unspecified; E78.5 Hyperlipidemia, unspecified ==

== ENCOUNTER → 2021-06-19 | Outpatient (CLI) | payer MEDICARE ==
[~2021-06-19] MED LIST changes: +FERRIC X-150150 M1 PO; +FERSU300 PO; +OXYCODONE-ACET1 EAC3 PO
[2021-06-19 18:08] LABS: U Amphetamine Screen Not Detected; U Barbituate Screen Not Detected; U Benzodiazapine Screen Not Detected; U Buprenorphine Screen Not Detected; U Cannabinoids Screen Not Detected; U Cocaine Screen Not Detected; U Methadone Screen Not Detected; U Methamphetamine Screen Not Detected; U Opiates Screen Not Detected; U Oxycodone Screen DETECTED; U Phencyclidine Screen Not Detected; U Propoxyphene Screen Not Detected
== END | disposition home or self-care (01) ==
LOC: LAB SHORT 16:40 → LAB 16:40
PROVIDERS: Nurse Practitioner Family
DX: Z51.81 Encounter for therapeutic drug level monitoring (principal); Z79.891 Long term (current) use of opiate analgesic

== ENCOUNTER 2021-08-04 06:58 | Emergency (ER) | payer OTHER ==
[~2021-08-04] VITALS: Ht 182.9 cm; Wt 105.7 kg
[2021-08-04] MEDS ORDERED: METFORMIN HCL500 M2 PO (07:42)
[2021-08-04 08:17] LABS: BASOPHILS ABSOLUTE AUTO 0.09 K/mm3 (0.00-0.23); BASOPHILS PERCENT AUTO 2 % (0-2); EOSINOPHILS ABSOLUTE AUTO 0.24 K/mm3 (0.00-0.68); EOSINOPHILS PERCENT AUTO 4 % (0-6); Hematocrit 35.6 % (37.0-53.0); Hemoglobin 10.7 g/dL (13.5-17.5); IMMATURE GRAN ABSOLUTE AUTO 0.02 K/mm3 (0.00-0.10); IMMATURE GRAN PERCENT AUTO 0 % (0-1); LYMPHOCYTES ABSOLUTE AUTO 1.77 K/mm3 (0.84-5.20); LYMPHOCYTES PERCENT AUTO 30 % (21-46); MONOCYTES ABSOLUTE AUTO 0.56 K/mm3 (0.16-1.47); MONOCYTES PERCENT AUTO 9 % (4-13); Mean Corpuscular HGB 20.9 pg (26.0-34.0); Mean Corpuscular HGB Conc 30.1 g/dL (31.5-36.5); Mean Corpuscular Volume 70 fL (80-100); Mean Platelet Volume 9.3 fL (9.1-12.4); NEUTROPHILS ABSOLUTE AUTO 3.25 K/mm3 (1.96-9.15); NEUTROPHILS PERCENT AUTO 55 % (41-73); Platelet Count 323 K/mm3 (150-400); RDW Coefficient Variation 21.4 % (11.7-14.2); RDW Standard Deviation 52.8 fL (35.1-46.3); Red Blood Cell Count 5.11 M/mm3 (4.30-5.90); White Blood Cell Count 5.93 K/mm3 (4.00-11.30)
[2021-08-04 08:35] LABS: Albumin, Blood 3.7 g/dL (3.4-5.0); Albumin/Globulin Ratio 0.9 (0.8-1.8); Bilirubin, Total 0.5 mg/dL (0.1-1.0); Calcium, Blood 8.9 mg/dL (8.5-10.1); Creatinine, Blood 1.41 mg/dL (0.60-1.20); Globulin, Blood 3.9 g/dL (2.2-4.0); Potassium, Blood 4.2 mmol/L (3.5-5.5); Total Protein, Blood 7.6 g/dL (6.4-8.2); Troponin I 0.404 ng/mL (0.000-0.040)
== END 2021-08-04 10:25 | disposition home or self-care (01) ==
LOC: ER 06:58
PROVIDERS: Emergency Medicine
DX: I11.0 Hypertensive heart disease with heart failure (principal); I50.9 Heart failure, unspecified; F03.90 Unspecified dementia, unspecified severity, without behavioral disturbance, psychotic disturbance, mood disturbance, and anxiety; E11.9 Type 2 diabetes mellitus without complications; I25.119 Atherosclerotic heart disease of native coronary artery with unspecified angina pectoris; J44.9 Chronic obstructive pulmonary disease, unspecified; I25.2 Old myocardial infarction; G47.30 Sleep apnea, unspecified; Z88.8 Allergy status to other drugs, medicaments and biological substances; Z79.899 Other long term (current) drug therapy; Z79.4 Long term (current) use of insulin; Z20.822 Contact with and (suspected) exposure to COVID-19
CPT/HCPCS: 36415; 71045; 80053; 83880; 84484; 85025; 93005; 93010; 99284-25; A9270

== ENCOUNTER 2021-08-25 14:06 | Emergency (ER) | payer OTHER ==
[~2021-08-25] VITALS: Ht 182.9 cm; Wt 105.2 kg
[~2021-08-25 14:06] MED LIST changes: +FERREX 150150 M1 PO; +INSULANI SC; +METFORMIN HCL500 M2 PO; +NOVOLOG100 UNIT/2; +PRALUENT P75 MG/1 ML IM
== END 2021-08-25 16:00 | disposition home or self-care (01) ==
LOC: ER 14:06
DX: K59.00 Constipation, unspecified (principal); I11.0 Hypertensive heart disease with heart failure; I50.9 Heart failure, unspecified; E11.9 Type 2 diabetes mellitus without complications; I25.10 Atherosclerotic heart disease of native coronary artery without angina pectoris; J44.9 Chronic obstructive pulmonary disease, unspecified; I25.2 Old myocardial infarction; Z88.8 Allergy status to other drugs, medicaments and biological substances; Z79.899 Other long term (current) drug therapy; Z79.4 Long term (current) use of insulin
CPT/HCPCS: 74019; 99283-25

== ENCOUNTER 2021-09-02 01:21 | Emergency (ER) | payer OTHER ==
[~2021-09-02] VITALS: Ht 182.9 cm; Wt 106.6 kg
[2021-09-02 02:53] LABS: BASOPHILS ABSOLUTE AUTO 0.05 K/mm3 (0.00-0.23); BASOPHILS PERCENT AUTO 1 % (0-2); EOSINOPHILS ABSOLUTE AUTO 0.27 K/mm3 (0.00-0.68); EOSINOPHILS PERCENT AUTO 4 % (0-6); Hematocrit 35.7 % (37.0-53.0); Hemoglobin 10.7 g/dL (13.5-17.5); IMMATURE GRAN ABSOLUTE AUTO 0.06 K/mm3 (0.00-0.10); IMMATURE GRAN PERCENT AUTO 1 % (0-1); LYMPHOCYTES ABSOLUTE AUTO 1.89 K/mm3 (0.84-5.20); LYMPHOCYTES PERCENT AUTO 29 % (21-46); MONOCYTES ABSOLUTE AUTO 0.55 K/mm3 (0.16-1.47); MONOCYTES PERCENT AUTO 9 % (4-13); Mean Corpuscular HGB 21.2 pg (26.0-34.0); Mean Corpuscular Volume 71 fL (80-100); NEUTROPHILS ABSOLUTE AUTO 3.61 K/mm3 (1.96-9.15); NEUTROPHILS PERCENT AUTO 56 % (41-73); Platelet Count 378 K/mm3 (150-400); RDW Coefficient Variation 22.4 % (11.7-14.2); RDW Standard Deviation 55.5 fL (35.1-46.3); Red Blood Cell Count 5.04 M/mm3 (4.30-5.90); White Blood Cell Count 6.43 K/mm3 (4.00-11.30)
[2021-09-02 03:11] LABS: Albumin/Globulin Ratio 0.8 (0.8-1.8); Bilirubin, Total 0.4 mg/dL (0.1-1.0); Bun/Creatinine Ratio 14.3 (12.0-20.0); Calcium, Blood 9.1 mg/dL (8.5-10.1); Creatinine, Blood 1.54 mg/dL (0.60-1.20); Globulin, Blood 3.9 g/dL (2.2-4.0); Potassium, Blood 4.6 mmol/L (3.5-5.5); Total Protein, Blood 6.9 g/dL (6.4-8.2)
[2021-09-02] MEDS ORDERED: MIRALAX17 GM PO (05:36)
[2021-09-02] MEDS ORDERED: Fleet Enema132 ML PR (05:36)
== END 2021-09-02 05:57 | disposition home or self-care (01) ==
LOC: ER 01:21
PROVIDERS: Student in an Organized Health Care Education/Training Program
DX: K59.00 Constipation, unspecified (principal); I11.0 Hypertensive heart disease with heart failure; I50.9 Heart failure, unspecified; E11.9 Type 2 diabetes mellitus without complications; I25.10 Atherosclerotic heart disease of native coronary artery without angina pectoris; J44.9 Chronic obstructive pulmonary disease, unspecified; I25.2 Old myocardial infarction; Z88.8 Allergy status to other drugs, medicaments and biological substances; Z88.1 Allergy status to other antibiotic agents; Z79.899 Other long term (current) drug therapy; Z79.4 Long term (current) use of insulin; Z79.01 Long term (current) use of anticoagulants
CPT/HCPCS: 74177; 80053; 83690; 85025; 99284-25; A9270; Q9967

== ENCOUNTER 2021-09-27 04:36 | Emergency (ER) | payer OTHER ==
[~2021-09-27] VITALS: Ht 182.9 cm; Wt 106.6 kg
[~2021-09-27 04:36] MED LIST changes: +Fleet Enema132 ML PR
[2021-09-27 05:27] LABS: BASOPHILS ABSOLUTE AUTO 0.05 K/mm3 (0.00-0.23); BASOPHILS PERCENT AUTO 1 % (0-2); EOSINOPHILS ABSOLUTE AUTO 0.21 K/mm3 (0.00-0.68); EOSINOPHILS PERCENT AUTO 3 % (0-6); Hematocrit 34.6 % (37.0-53.0); Hemoglobin 10.3 g/dL (13.5-17.5); IMMATURE GRAN ABSOLUTE AUTO 0.03 K/mm3 (0.00-0.10); IMMATURE GRAN PERCENT AUTO 0 % (0-1); LYMPHOCYTES ABSOLUTE AUTO 1.91 K/mm3 (0.84-5.20); LYMPHOCYTES PERCENT AUTO 25 % (21-46); MONOCYTES PERCENT AUTO 9 % (4-13); Mean Corpuscular HGB 21.2 pg (26.0-34.0); Mean Corpuscular HGB Conc 29.8 g/dL (31.5-36.5); Mean Corpuscular Volume 71 fL (80-100); Mean Platelet Volume 9.1 fL (9.1-12.4); NEUTROPHILS ABSOLUTE AUTO 4.82 K/mm3 (1.96-9.15); NEUTROPHILS PERCENT AUTO 63 % (41-73); Platelet Count 357 K/mm3 (150-400); RDW Coefficient Variation 22.5 % (11.7-14.2); Red Blood Cell Count 4.86 M/mm3 (4.30-5.90); White Blood Cell Count 7.72 K/mm3 (4.00-11.30)
[2021-09-27 05:41] LABS: Albumin, Blood 3.1 g/dL (3.4-5.0); Albumin/Globulin Ratio 0.8 (0.8-1.8); Bilirubin, Total 0.7 mg/dL (0.1-1.0); Bun/Creatinine Ratio 18.8 (12.0-20.0); Calcium, Blood 9.3 mg/dL (8.5-10.1); Creatinine, Blood 1.49 mg/dL (0.60-1.20); Globulin, Blood 3.8 g/dL (2.2-4.0); Potassium, Blood 4.1 mmol/L (3.5-5.5); Total Protein, Blood 6.9 g/dL (6.4-8.2); Troponin I 0.364 ng/mL (0.000-0.040)
== END 2021-09-27 06:15 | disposition home or self-care (01) ==
LOC: ER 04:36
PROVIDERS: Emergency Medicine
DX: R07.2 Precordial pain (principal); J44.9 Chronic obstructive pulmonary disease, unspecified; I25.2 Old myocardial infarction; I11.0 Hypertensive heart disease with heart failure; I50.32 Chronic diastolic (congestive) heart failure; E11.40 Type 2 diabetes mellitus with diabetic neuropathy, unspecified; Z87.891 Personal history of nicotine dependence
CPT/HCPCS: 71045; 80053; 83880; 84484; 85025; 93005; 93010; 99285-25

== ENCOUNTER 2021-11-06 21:16 | Observation (INO) | payer OTHER ==
[~2021-11-06] VITALS: Ht 180.3 cm; Wt 99.8 kg
[~2021-11-06 21:16] MED LIST changes: -ISOSORBIDE MONO60 MG PO; +Imdur60 MG PO; +METHOTREXATE2.5 M6
[2021-11-06 22:28] LABS: BASOPHILS ABSOLUTE AUTO 0.06 K/mm3 (0.00-0.23); BASOPHILS PERCENT AUTO 1 % (0-2); EOSINOPHILS ABSOLUTE AUTO 0.13 K/mm3 (0.00-0.68); EOSINOPHILS PERCENT AUTO 2 % (0-6); Hematocrit 33.5 % (37.0-53.0); Hemoglobin 9.7 g/dL (13.5-17.5); IMMATURE GRAN ABSOLUTE AUTO 0.05 K/mm3 (0.00-0.10); IMMATURE GRAN PERCENT AUTO 1 % (0-1); LYMPHOCYTES ABSOLUTE AUTO 0.71 K/mm3 (0.84-5.20); LYMPHOCYTES PERCENT AUTO 9 % (21-46); MONOCYTES ABSOLUTE AUTO 0.39 K/mm3 (0.16-1.47); MONOCYTES PERCENT AUTO 5 % (4-13); Mean Corpuscular HGB 20.8 pg (26.0-34.0); Mean Corpuscular Volume 72 fL (80-100); Mean Platelet Volume 8.9 fL (9.1-12.4); NEUTROPHILS ABSOLUTE AUTO 6.45 K/mm3 (1.96-9.15); NEUTROPHILS PERCENT AUTO 83 % (41-73); Platelet Count 395 K/mm3 (150-400); RDW Coefficient Variation 21.8 % (11.7-14.2); RDW Standard Deviation 54.8 fL (35.1-46.3); Red Blood Cell Count 4.66 M/mm3 (4.30-5.90); White Blood Cell Count 7.79 K/mm3 (4.00-11.30)
[2021-11-06 22:56] LABS: Ethanol (Alcohol), Blood, Med <3 mg/dL
[2021-11-06 23:11] LABS: Alanine Aminotransfer (ALT/SGP 47 U/L (12-78); Albumin, Blood 3.6 g/dL (3.4-5.0); Albumin/Globulin Ratio 1.1 (0.8-1.8); Alk Phos 59 U/L (50-136); Anion Gap 4 mmol/L (6-16); Aspartate Aminotrans (AST/SGOT 40 U/L (12-37); Blood Urea Nitrogen 35 mg/dL (8-24); Bun/Creatinine Ratio 22.3 (12.0-20.0); CO2, Blood 27 mmol/L (21-32); Calcium, Blood 8.7 mg/dL (8.5-10.1); Chloride, Blood 108 mmol/L (98-108); Creatinine, Blood 1.57 mg/dL (0.60-1.20); Globulin, Blood 3.4 g/dL (2.2-4.0); Glomerular Filtration Rate 43 (60-); Glucose, Blood 46 mg/dL (70-99); Sodium, Blood 139 mmol/L (136-145)
[2021-11-06 23:34] LABS: Base Excess Venous 0.8 mmol/L; Bicarbonate Venous 23.9 mmol/L (24.0-30.0); PCO2 Venous 53.4 mmHg (38-42); PO2 Venous 33.2 mmHg (38-42); pH Blood Venous 7.31 (7.34-7.37)
[2021-11-07 00:22] LABS: Influenza A, PCR NEGATIVE (NEGATIVE); Influenza B, PCR NEGATIVE (NEGATIVE); Resp Syncytial Virus, PCR NEGATIVE (NEGATIVE); SARS-Cov-2 (COVID-19) PCR, MMC NEGATIVE (NEGATIVE)
[2021-11-07 00:30] LABS: Source, Urine Catheter
[2021-11-07 00:32] LABS: Bilirubin, Urine Neg (Neg); Blood, Urine 2+ (Neg); Glucose Qualitative, Urine 4+ (Neg); Ketones, Urine Neg (Neg); Leukocyte Esterase, Urine Neg (Neg); Nitrite, Urine Neg (Neg); Protein, Urine 1+ (Neg); Urobilinogen, Urine NORM (Normal)
[2021-11-07 00:49] LABS: Color, Urine Yellow (P-Yellow)
[2021-11-07 00:50] LABS: Appearance, Urine Clear (Clear); White Blood Cells, Urine 0-2 /hpf (0-5)
[2021-11-07 00:51] LABS: Bacteria Rare /hpf; Squamous Epithelial Cells Rare /hpf (Few)
[2021-11-07 01:09] LABS: U Amphetamine Screen Not Detected; U Barbituate Screen Not Detected; U Benzodiazapine Screen Not Detected; U Buprenorphine Screen Not Detected; U Cannabinoids Screen DETECTED; U Cocaine Screen Not Detected; U Methadone Screen Not Detected; U Methamphetamine Screen Not Detected; U Opiates Screen Not Detected; U Oxycodone Screen Not Detected; U Phencyclidine Screen Not Detected; U Propoxyphene Screen Not Detected
[2021-11-07] MEDS ORDERED: JARDIANCE25 MG PO (01:32)
[2021-11-07] MEDS ORDERED: CYCL10 PO (01:32)
[2021-11-07] MEDS ORDERED: EZET10 PO (01:33)
[2021-11-07 06:23] LABS: Base Excess Venous -0.6 mmol/L; Bicarbonate Venous 22.9 mmol/L (24.0-30.0); PCO2 Venous 56.6 mmHg (38-42); PO2 Venous 43.3 mmHg (38-42); pH Blood Venous 7.27 (7.34-7.37)
[2021-11-07 06:38] LABS: BASOPHILS ABSOLUTE AUTO 0.05 K/mm3 (0.00-0.23); BASOPHILS PERCENT AUTO 1 % (0-2); EOSINOPHILS ABSOLUTE AUTO 0.13 K/mm3 (0.00-0.68); EOSINOPHILS PERCENT AUTO 1 % (0-6); Hematocrit 36.1 % (37.0-53.0); Hemoglobin 10.3 g/dL (13.5-17.5); IMMATURE GRAN ABSOLUTE AUTO 0.03 K/mm3 (0.00-0.10); IMMATURE GRAN PERCENT AUTO 0 % (0-1); LYMPHOCYTES PERCENT AUTO 13 % (21-46); MONOCYTES ABSOLUTE AUTO 0.65 K/mm3 (0.16-1.47); MONOCYTES PERCENT AUTO 7 % (4-13); Mean Corpuscular HGB 20.6 pg (26.0-34.0); Mean Corpuscular HGB Conc 28.5 g/dL (31.5-36.5); Mean Corpuscular Volume 72 fL (80-100); Mean Platelet Volume 8.9 fL (9.1-12.4); NEUTROPHILS ABSOLUTE AUTO 7.01 K/mm3 (1.96-9.15); NEUTROPHILS PERCENT AUTO 77 % (41-73); Platelet Count 425 K/mm3 (150-400); RDW Standard Deviation 55.3 fL (35.1-46.3); Red Blood Cell Count 4.99 M/mm3 (4.30-5.90); White Blood Cell Count 9.07 K/mm3 (4.00-11.30)
[2021-11-07 07:24] LABS: Albumin, Blood 3.6 g/dL (3.4-5.0); Albumin/Globulin Ratio 0.9 (0.8-1.8); Bilirubin, Total 1.3 mg/dL (0.1-1.0); Bun/Creatinine Ratio 21.3 (12.0-20.0); Calcium, Blood 8.8 mg/dL (8.5-10.1); Creatinine, Blood 1.36 mg/dL (0.60-1.20); Potassium, Blood 4.2 mmol/L (3.5-5.5); Total Protein, Blood 7.6 g/dL (6.4-8.2)
[2021-11-07 09:08] LABS: PCO2 Arterial 40.3 mmHg (35-45); PO2 Arterial 76.8 mmHg (80-100); pH Blood Arterial 7.37 (7.35-7.45)
--- NOTE | 2021-11-07 12:47 | NUR ---
PCU ADMIT PT BROUGHT TO PCU-03 BY GITA FROM ER @ APPROX 1215. PT ABLE TO STAND & AMBULATE FROM [facility] TO U BED. PT W/ BLOOD ON PENIS & ON GOWN W/ STRAP SETTER REPORT OF PT HAVING PULLED OUT HARRIS CATHETER IN ER. ATTENDS PLACED ON PT FOR BLEEDING. PT A&O TO SELF ONLY. PT STATES BEING IN [place], & DENIES KNOWING WHAT KIND OF BUILDING HE IS IN, STATING "I DON'T KNOW. 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 PT ASKING HOW HE MANAGED TO GET TO [place] WHEN REORIENTED TO LOCATION. 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 SPO2 > 92% ON RA. MONITOR SHOWS SR W/ BBB, HR 70's. PACER NOTED TO LCW. PT DENIES ANY LIGHTHEADEDNESS, DIZZINESS W/ TRANSFER FROM [facility] TO U BED. PT DENIES PAIN OR DISCOMFORT AT THIS TIME. CBG STABLE. PT IN BED W/ BED ALARM ON. CAMERA ON IN RM FOR SAFE PT MONITORING.
--- NOTE | 2021-11-07 14:59 | NUR ---
UPDATE PT SEEN BY ST, CLEARED FOR MECHANICAL SOFT DIET, THIN LIQUIDS & MEDS WHOLE W/ APPLESAUCE. PT SITTING UP IN CHAIR, TOLERATING PO MEDICATION W/ APPLESAUCE WELL. PT SPOUSE AT BEDSIDE. PT NOW ACKNOWLEDGING THAT HE IS . TV ON IN , PT SPOUSE REPORTING THAT "WHEN HE WATCHES TV, HE APPLIES WHAT's ON TV TO HIS LIFE, IF SOMEONE's IS ON TV HE WILL THINK IT'S HIS OR OTHER THINGS LIKE THAT." PT SPOUSE ALSO WARNING "HE IS A WANDERER, YOU WILL FIND HIM OUT IN THE MIDDLE OF THE WILKS IN THE MIDDLE OF THE NIGHT." PT SPOUSE UPDATED ON BED ALARM & CHAIR ALARM USE FOR PT SAFETY IN PLACE. PT CBG CONTINUES TO BE STABLE.
--- NOTE | 2021-11-07 18:09 | NUR ---
SHIFT SUMMARY PT A&O TO SELF & WHO CAME TO VISIT TODAY, OTHERWISE CONFUSED. PT VSS. SPO2 > 92% ON RA. MONITOR SHOWING SR W/ BBB, HR 60's-70's. PACER TO LCW. PT CBG's STABLE, TRANSITIONED FROM Q2H CBG MONITORING TO AC&HS W/ LSS COVERAGE. MD EUCEDA W/ PLAN TO REASSESS RESUMING LONG ACTING INSULIN TOMORROW. PT URINE CONTINUES TO BE BLOODY POST SELF REMOVAL OF HARRIS CATH IN ER WELL BURNING SENSATION WHEN URINATING. PT UNSTEADY, REQUIRING 1 PERSON SBA, TOLERATING AMBULATING W/ FWW WELL. STAFF REMAINING NEXT TO PT WHEN UP D/T PT TENDENCY TO FALL BACK, LOSING BALANCE. PT IN CAMERA ON FOR CLOSER MONITORING OF PT GETTING OUT OF BED OR PULLING AT LINES. PT BED ALARM OR CHAIR ALARM BEING USED W/ PT RESPONDING WELL TO STOPPING GETTING UP WHEN SETTING OFF ALARMS. PT NOW CALLING OUT "NURSE" WHEN NEEDING TO USE THE RESTROOM. WILL CONTINUE TO MONITOR & PROVIDE CARE UNTIL REPORT OFF TO BAR WELDER RN.
--- NOTE | 2021-11-08 06:22 | NUR ---
AT START OF SHIFT PATIENT IS VERY CONFUSED, ONLY ORIENTED TO SELF, ATTEMPTED TO WANDER HALLS, BECAME AGITATED WHEN STAFF ATTEMPTED TO ESCORT PATEINT BACK TO ROOM. PATIENT REMOVED TELE BOX AND IS SWINGING BOX IN CIRCLES FROM CORDS, REFUSING TO RETURN TO ROOM. SECURITY REQUIRED TO RETURN PATIENT TO BED. BILATERAL WRIST SOFT RESTRAINTS PLACED PATIENT IS FIGHTING STAFF TO EXIT BED AND REMOVE MONITORING DEVICES AND IV IN ATTEMPTS TO LEAVE HOSPITAL. PATIENT IS NOT REDIRECTABLE. IN SOFT RESTRAINTS PATIENT IS PULLING AT RESTRAINTS, BANGING CALL LIGHT ON BED RALE, YELLING OUT, KICKING LEGS, EVENTUALLY PATIENT SUCCESSFULLY BREAKS OUT OF SOFT WRIST RESTRAINTS AND IS WANDERING ROOM, STAFF AT DOOR WAY. PATIENT IS NOT REDIRECTABLE, WALKS TO CHAIR AND BEGINS TO URINATE ON CHAIR. SECURITY IS CALLED TO RETURN PATIENT TO BED, THEY ATTEMPT TO REDIRECT VERBALLY, BUT ARE UNABLE TO PATIENT IS NOT COOPERATIVE AND BEINGS PULLING OUT IV. PATIENT IS RETURNED TO BED BY SECURITY. TAT WRIST RESTRAINTS PALACED DUE TO PATIENTS STRENGTH. PATIENT CONTINUES TO YELL AND PULL AT RESTRAINTS FOR WHICH ORDER HAS BEEN OBTAINED. DISCUSSED CONCERN FOR MARCELINO SPARROW WITH HOSPITALIST. PRN ORDER FOR HALDOL OBTAINED, BUT MINIMALLY EFFECTIVE. PATIENT CONTINUES TO CALL OUT AND PULL AT WHATEVER HE CAN. LATER OBTAINED ORDER FOR SERQUIL 25MG PO WHICH IS ALSO MINIMALLY EFFECTIVE, BUT PATIENT IS ABLE TO SLEEP ONE HOUR. WILL DISCUSS POTENTIAL FOR INREASING SERQUIL DOSE WITH DAY TEAM.
--- NOTE | 2021-11-08 09:13 | NUR ---
CARE ASSUMPTION PT A&O TO SELF, DID STATE YEAR TO BE "2020" & PRESIDENT TO BE "MARI". PT OTHERWISE CONFUSED, REQUIRING REORIENTATION TO LOCATION, EVENT, & CIRCUMSTANCES. PT OUT OF RESTRAINTS, SITTING UP IN CHAIR FOR MEAL. PT FOLLOWING SIMPLE INSTRUCTIONS. CHAIR ALARM ON. PT SITTING BACK DOWN WHEN CHAIR ALARM GOES OFF. IN RM CAMERA MONITOR ON WELL. PT MADE MEDICAL W/ NO TELE STATUS. VSS. SPO2 > 92% ON RA. WILL CONTINUE TO MONITOR.
--- NOTE | 2021-11-08 10:22 | NUR ---
UPDATE / CONFUSION PT REPORTING 11/07 THAT PT APPLIES WHAT'S ON TV TO PT's OWN LIFE. 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 PT VERY PLEASANT, ATTEMPTING TO LEAVE RM MULTIPLE TIMES STATING, "I SEE PEOPLE OUT THERE CLEANING. I JUST WANT TO HELP GET THINGS IN ORDER." PT COMPLIANT W/ RETURNING TO RM, NOW SITTING BACK IN CHAIR W/ ACTIVITY BOOK. CHAIR ALARM ON. IN RM CAMERA ON.
--- NOTE | 2021-11-08 10:52 | NUR ---
CHAIR ALARM PT CHAIR ALARM SET OFF, THIS RN TO PT RM PROMPTLY, FINDING PT STANDING INFRONT OF CHAIR W/ THE CHAIR ALARM REMOVED FROM UNDER THE BLANKET, FOLDED & PLACED ON TOP OF THE CHAIR W/ A WATER BOTTLE ON TOP OF THE ALARM PAD, DISARMING THE ALARM W/ PRESSURE. WHEN THIS RN REMOVING WATER BOTTLE FROM ON TOP OF THE ALARM, PT STATED "OH NO! DON'T DO THAT! THE ALARM WILL GO OFF!" PT REMINDED WE NEED THE ALARM.
--- NOTE | 2021-11-09 04:24 | NUR ---
PT IS A/OX1-3 SELF, SOMETIMES LOCATION AND DATE. CONFUSION WAXING AND WANING. PT BEGINS EXITING BED AND WANDERING AFTER 0100. REDIRECTABLE. COOPERATIVE WITH CARE. PT IS GREATLY RELAXED WHEN HE IS ALLOWED TO MAKE MANY CHOICES FOR HIMSELF POSSIBLE AND WHEN SOMEONE IS ABLE TO SPEND TIME SITTING WITH HIM. STAFF OCCASIONALLY SAT WITH PATIENT THROUGH THE HEAD OF ART. PT CAN ALSO BE DISTRACTED FOR SHORT PERIODS OF TIME WITH CROSS WORDS AND TV.
--- NOTE | 2021-11-09 07:23 | NUR ---
ASSUMPTION OF CARE NOTE PT ALERT TO SELF AND AKIRA, NOT TO PLACE OR SITUATION. SPO2 98% ON ROOM AIR, VITAL SIGNS STABLE. PT NOW IN CHAIR, CHAIR ALARM ON. CALL LIGHT AND PERSONAL BELONGINGS IN REACH. WILL CONTINUE TO MONITOR.
--- NOTE | 2021-11-09 17:50 | NUR ---
SHIFT SUMMARY PT ALERT TO SELF AND AKIRA. VITAL SIGNS STABLE, PT ON RA SPO2 98-100%. PT DENIED CHEST PAIN/PRESSURE. NO NAUSEA OR VOMITTING REPORTED. PHYSICAL THERAPY EVALUATED PT TODAY. PT DOES NOT HAVE IV ACCESS. ORAL MEDICATIONS TAKEN WITH APPLESAUCE AND PT TOLERATES WELL. SCATTERED BRUISING T/O NOTED, MEPILEX DRESSING ON RIGHT FOREARM IN PLACE. AKIRA HAS BEEN AT BEDSIDE SINCE 1400. NO OTHER ACUTE CHANGES NOTED. WILL CONTINUE TO MONITOR. CALL LIGHT IN REACH, CHAIR ALARM ON.
--- NOTE | 2021-11-10 10:56 | NUR ---
NEURO CHECK PATIENT REMAINS ALERT TO SELF ONLY AND IS PLEASANTLY CONFUSED. PATIENT VERY FORGETFUL AND REPEATS QUESTIONS TO STAFF. PATIENT REMINDED THAT CHAIR ALARM IS IN PLACE FOR SAFETY AND A REMINDER FOR THE PATIENT TO HAVE ASSISTANCE WHILE UP IN ROOM. PATIENT EASILY REDIRECTABLE. CAMERA REMAINS ON FOR PATIENT SAFETY.
--- NOTE | 2021-11-10 17:03 | NUR ---
SHIFT SUMMARY PATIENT ALERT AND ORIENTED TO SELF AND FAMILY ONLY. VSS. PATIENT ON RA WITH O2 SATURATION ABOVE 92%. PATIENT IS VERY CONFUSED BUT IS EASILY REDIRECTABLE. TAKING MEDICATIONS WHOLE WITH APPLESAUCE AND TOLERATING WELL. NO IV ACCESS. PATIENT HAS BEEN SITTING UP IN RECLINER FOR MOST OF DAY AND USES RESTROOM WITH MINIMAL ASSISTANCE. CHAIR ALARM IN PLACE FOR SAFETY. VISITED PATIENT THIS AFTERNOON. DENIES CHEST PAIN/PRESSURE OR NAUSEA/VOMITTING T/O SHIFT. NO OTHER SIGNIFICANT CHANGES NOTED. WILL REPORT TO ASSOCIATE SCHOOL PSYCHOLOGIST RN.
--- NOTE | 2021-11-11 05:19 | NUR ---
SHIFT SUMMARY PATIENT IS A PLESANTLY CONFUSED MAN WHO IS INTERMITTENTLY ORIENTED BUT VERY FORGETFUL. RESTLESS MUCH OF THE SHIFT AND COMPLAINING OF PAIN IN HIS BUTT CONSTANTLY. FALL PRECAUTIONS IN PLACE. FOLLOWING COMMANDS AND MOSTLY COMPLIANT WITH CARE. UP WITH STAND BY ASSIST IN ROOM. SITTING IN CHAIR AT THIS TIME. VSS. NO TELE IN PLACE. ON RA AND REFUSED CPAP OVERNIGHT. TOLERATING MECH SOFT DIET. VOIDING WELL IN THE BATHROOM. NO PAIN OR DISTRESS. WILL CONTINUE PLAN OF CARE UNTIL REPORT GIVEN TO DAYSHIFT RN.
--- NOTE | 2021-11-11 13:32 | NUR ---
Spiritual care visit conducted. Patient is sitting on a chair and alert. Patient immediately tells me that he is having trouble with his memory and that plays out very quickly in our conversation as he forgets things that were discussed minutes earlier. Pt mentions that this is causing him some worry. Patient does have good recall of events, people and places from past history. Patient shares about his and 3 sons and the solid support that he has. 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 He tells me that hs has a basic Temple type patti but is not "restorationist" although prayer is meaningful to him. I reinforce helpful attitudes, and provide therapeutic listiening and prayer. Pt responds well and shows signs of increased peace.
--- NOTE | 2021-11-11 17:23 | NUR ---
SHIFT SUMMARY PT A&Ox2-3; FORGETFUL AT TIMES. PT STATES "I HAVE TROUBLE REMEMBERING SOMETIMES". PT SBA, IMPULSIVE SETTING CHAIR ALARM OFF REPEATEDLY DURING SHIFT. PT DENIES PAIN, CHEST PAIN/PRESSURE, SOB, NAUSEA AND DIZZINESS. VSS. NO OTHER ACUTE CHANGES NOTED. WILL COTNTINUE TO MONITOR UNITL REPORT GIVEN TO ONCOMING RN.
--- NOTE | 2021-11-12 05:16 | NUR ---
SHIFT SUMMARY PATIENT ALERT AND ORIENTED X2. MEDICATED PER EMAR FOR PAIN. HAD NO COMPLAINTS OF SHORTNESS OF BREATH. NO ACUTE ISSUES NOTED OVERNIGHT. BED IN LOWEST POSITION WITH WHEELS LOCKED AND ALARM ON. CALL LIGHT WITHIN REACH.
--- NOTE | 2021-11-12 18:11 | NUR ---
SHFIT SUMMARY PT A&Ox2-3; FORGETFUL AND CONFUSED AT TIMES. PT UP WITH SBA IN ROOM AND WALKING IN HALLS. PT DENIES PAIN, CHEST PAIN/PRESSURE, SOB, NAUSEA AND DIZZINESS. AWAITING MEMORY CARE PLACEMENT, POSSIBLE DISCHARGE TOMORROW TO [facility]. VSS. NO OTHER ACUTE CHANGES NOTED. WILL CONTINUE TO MONITOR UNTIL REPORT GIVEN TO ONCOMING RN.
--- NOTE | 2021-11-13 02:39 | NUR ---
PATIENT HAVING INCREASED CONFUSION. ASKING FOR ITEMS THAT ARE NOT IN HIS ROOM LIKE A FLASHLIGHT. NOT ABLE TO REORIENT AT THIS TIME. PATIENT IN BED WANTING TO GO TO CHAIR. WHEN IN CHAIR WANTED TO GO BACK INTO BED AND REPEAT EVENT. BED ALARM ACTIVATED. WCTM.
--- NOTE | 2021-11-13 02:58 | NUR ---
SEROQUEL 25 MG GIVEN FOR AGITATION. TYLENOL 650 MG GIVEN FOR LOW BACK PAIN PRN.
--- NOTE | 2021-11-13 03:47 | NUR ---
SHIFT SUMMARY PATIENT HAD INCREASED CONFUSION T/O THE SHIFT. NOT ABLE TO FOLOW DIRECTIONS. WANTING TO GO TO BED AND BACK TO CHAIR MULTIPLE TIMES. AXOX 2-3 FORGETFUL. SBA TO BSC. WALKED WILKS X ONE WITH ASSIST. CBG 264. NO IV ACCESS. DENIES PAIN, SOB, AND N/V. VSS/AFEBRILE. RESTLESS T/O SHIFT. CALL LIGHT IN REACH. BED IN LOWEST POSITION AND ALARM ACTIVATED. WILL CONTINUE TO MONITOR UNTIL DAY SHIFT NURSE ASSUMES CARE.
--- NOTE | 2021-11-13 15:46 | NUR ---
Spiritual care visit conducted. Patient immediately tells me that he is in the dark concerning what is happening with him for his paln for DC. About 10 minutes later in the midst of our conversation he tells me that his spouse is well informed and that the plan is to DC him to [facility] in [place]. He also has momnets of not remembering about his family then later givess perfect details as to where they are living, their careers and their families. He admits to feeling disoriented and insecure. We talk about possible sources of those feelings and ways to feel more grounded and safe. At least during my visit the patient shows signs of greater peace and stability as I have provded anxiety containment, gentle associate professor of counseling and prayer. I will continue to remain available to patient and fmaily.
--- NOTE | 2021-11-13 18:00 | NUR ---
SHIFT SUMMARY; ASSUMED CARE AT 0700. ALERT AND ORIENTED X2. CONFUSION WITH HX OF DEMENTIA. AMBULATORY IN ROOM, REPOSITIONS SELF NEEDED. INSULIN OVERAGE PER EMAR. AWAITING TRANSFER TO [facility], NO ACUTE MEDICAL CHANGES.
[2021-11-14 10:10] LABS: Source, Urine Clean Catch
[2021-11-14 10:18] LABS: Appearance, Urine Clear (Clear); Bilirubin, Urine Neg (Neg); Blood, Urine 5+ (Neg); Color, Urine Yellow (P-Yellow); Glucose Qualitative, Urine 4+ (Neg); Ketones, Urine Neg (Neg); Leukocyte Esterase, Urine Neg (Neg); Nitrite, Urine Neg (Neg); Protein, Urine 1+ (Neg); Urobilinogen, Urine NORM (Normal)
[2021-11-14 10:37] LABS: Red Blood Cells, Urine 25-50 /hpf (0-2)
[2021-11-14 10:39] LABS: Bacteria Few /hpf; Squamous Epithelial Cells Rare /hpf (Few)
--- NOTE | 2021-11-14 17:36 | NUR ---
SHIFT SUMMARY; ASSUMED CARE AT 0700. A/A/OX3 WITH INTERMITANT CONFUSION AND REDIRECTION NEEDED. MOVES AROUND ROOM WITH STANDBY ASSIST. SAT IN RECLINER CHAIR IN ROOM MAJORITY OF THE DAY. 1 EPISODE OF BLOOD IN URINE, SENT TO LAB FOR URINALYSIS. HX OF PULLING HARRIS OUT A COUPLE DAYS AGO WITH SAME. WILL CONTINUE TO MONITOR. VSS, INSULIN COVERAGE PER EMAR. WILL CONTINUE TO MONITOR AND TREAT UNTIL CHANGE OF SHIFT.
--- NOTE | 2021-11-15 17:44 | NUR ---
PT REMAINS CONFUSED, PT OFTEN EXITING BED OR CHAIR, PT WITH CHAIR AND BED ALARM ON. VSS T/O THE DAY. PT HAS REQUIRED INSULIN COVERAGE T/O THE DAY. PT DENIES CP AND SOB. MEDS IN APPLESAUCE. PT HAS BEEN UP FOR A WALK TWICE TODAY. PT AWARE THAT HE WILL BE GOING TO PLACEMENT ON THURSDAY AT [facility]. HAS BEEN IN TO VISIT TODAY. NO ADDITIONAL CHANGES TO DISCUSS FOR THIS SHIFT
--- NOTE | 2021-11-15 21:37 | NUR ---
ASSUMED CARE OF PATIENT AT 1900. A/OX3-4 WITH SOME CONFUSION ABOUT WHY HE IS HERE. REPORTS PAIN 6/10 IN SHOULDERS/HIPS THAT HE REPORTS IS CHRONIC. MAINTAINS ABOVE 95% ON RA WITH CLEAR LS T/O. VSS. VERY PLEASANT. WILL UPDATE CHANGES OCCUR.
--- NOTE | 2021-11-16 17:48 | NUR ---
VSS. AFEBRILE. C/O HIP PAIN- TYLENOL X1 WITH ADEQUATE CONTROL OF PAIN PER PT. AUO. NO BM. TOLERATING CURRENT DIET. AMBULATING IN HALLWAYS FREQUENTLY- SBA WITH GAIT BELT. PENDING TRANSFER TO [facility] THURSDAY. FREQUENT ROUNDS TO ENSURE PT SAFETY. PT IN NO APPARENT DISTRESS AT THIS TIME. ENCOURAGE REPOSITIONING OFTEN TO PREVENT PRESSURE ULCERS. WILL CONTINUE TO MONITOR UNTIL TRANSFER OF CARE TO ONCOMING RN.
--- NOTE | 2021-11-16 21:06 | NUR ---
ASSUMED CARE OF PATIENT AT 1900. A/OX3-4 WITH SOME CONFUSION ON THE SITUATION. REPORTS PERSISTENT PAIN ON BOTTOM AND HIPS, TYLENOL GIVEN PRN AND HELPS. OTHER THAN THAT NO ACUTE CHANGES, WILL UPDATE CHANGES OCCUR.
--- NOTE | 2021-11-17 17:16 | NUR ---
SHIFT SUMMARY PT ALERT AND ORIENTED, BUT MILD CONFUSION AT TIMES. VS STABLE. PT DENIES ANY PAIN. PT ABLE TO AMBULATE THROUGH ROOM WITH MINIMAL ASSISTANCE. PT WALKED LOOP AROUND THE DEPARTMENT WITH SBA. NO ACUTE CHANGES THIS SHIFT. WILL CONTINUE TO MONITOR AND REPORT TO ONCOMING RN.
--- NOTE | 2021-11-17 21:26 | NUR ---
ASSUMED CARE OF PT AT 1900. A/OX4 TODAY WITH UNDERSTANDING OF WHY HE IS HERE AND THE PLANS FOR TOMORROW. VSS. NO ACUTE CHANGES SINCE LAST NIGHT. WILL UPDATE CHANGES OCCUR.
--- NOTE | 2021-11-18 17:13 | NUR ---
SHIFT SUMMARY PT ALERT AND ORIENTED. VS STABLE. PT WAS TO DC TO [facility] TODAY, BUT WAS DELAYED DUE TO STAFFING AT [facility]. PLAN FOR PT TO DC IN THE AM. PT ABLE TO WALK THROUGHOUT DEPARTMENT TODAY WITH SBA. PT REPOSITIONS HIMSELF INDEPENDENTLY. NO ACUTE CHANGES THIS SHIFT. WILL CONTINUE TO MONITOR AND REPORT TO ONCOMING RN.
--- NOTE | 2021-11-19 05:12 | NUR ---
SHIFT SUMMARY PATIENT ALERT AND ORIENTED BUT FORGETFUL AT TIMES. VSS. PATIENT DENIES CHEST PAIN OR PRESSURE T/O NIGHT. ABLE TO AMBULATE IN ROOM AND UNIT SBA. ABLE TO REPOSITION SELF INDEPENDENTLY. NO OTHER SIGNIFICANT CHANGES. PLAN IS TO DC TO [facility] DURING DAY SHIFT. WILL REPORT TO DAY SHIFT RN.
--- NOTE | 2021-11-19 08:14 | NUR ---
Dr. Lynn rounded on the pt. He is sitting up , eating his breakfast. Took his scheduled morning medications without difficulty. Pt. was told of the plan to go to [facility] today at 0930. He was surprised, but said that he would call his and let her know.
--- NOTE | 2021-11-19 09:37 | NUR ---
0915 Transport arrived for the pt. He used the bathroom first and then was assisted to the wheelchair. Belongings from bedside table and drawers of [facility] were with the patient upon departure.
[2021-11-19] MEDS ORDERED: Acetaminophen325 M1 PO (09:58)
[2021-11-19] MEDS ORDERED: Celexa10 MG PO (09:59)
[2021-11-19] MEDS ORDERED: DEXT40GEL PO (09:59)
[2021-11-19] MEDS ORDERED: Seroquel Xr50 MG PO (10:00)
[2021-11-19] MEDS ORDERED: SEROQUEL25 MG PO (10:00)
== END 2021-11-19 09:26 ==
LOC: ER 21:16 → PCU 21:17 → ERHOLD 21:17 → PCU 11-07 12:19
PROVIDERS: Family Medicine; Student in an Organized Health Care Education/Training Program; ADMIT Family Medicine
DX: E11.649 Type 2 diabetes mellitus with hypoglycemia without coma (principal); I25.118 Atherosclerotic heart disease of native coronary artery with other forms of angina pectoris; E87.4 Mixed disorder of acid-base balance; G92.8 Other toxic encephalopathy; F41.9 Anxiety disorder, unspecified; E78.5 Hyperlipidemia, unspecified; I11.0 Hypertensive heart disease with heart failure; I50.22 Chronic systolic (congestive) heart failure; G47.33 Obstructive sleep apnea (adult) (pediatric); E11.51 Type 2 diabetes mellitus with diabetic peripheral angiopathy without gangrene; K21.9 Gastro-esophageal reflux disease without esophagitis; E11.42 Type 2 diabetes mellitus with diabetic polyneuropathy; Z95.5 Presence of coronary angioplasty implant and graft; Z87.891 Personal history of nicotine dependence; Z88.8 Allergy status to other drugs, medicaments and biological substances; Z79.4 Long term (current) use of insulin; Z79.01 Long term (current) use of anticoagulants; Z79.899 Other long term (current) drug therapy; Z20.822 Contact with and (suspected) exposure to COVID-19
CPT/HCPCS: 0241U; 36600; 51702; 70470; 80053; 81001; 82803; 82947; 83036; 85025; 87086; 92526; 92610; 93005; 93010; 94660; 94760; 94762; 96374; 96375; 96376; 97110; 97116; 97162; 97165; 97530; 99285-25; A9270; C1751; G0378; G0480; J1630; J1815; J7042; Q9967

== ENCOUNTER → 2021-12-05 | Outpatient (CLI) | payer OTHER ==
[~2021-12-05] MED LIST changes: +Acetaminophen325 M1 PO; +Celexa10 MG PO; +DEXT40GEL PO; +EZET10 PO; +SEROQUEL25 MG PO; +Seroquel Xr50 MG PO
[2021-12-05 16:27] LABS: Creatinine Urine 41.1 mg/dL (27.00-270.00); Protein, Urine Quantitative 5.2 mg/dL (0.0-11.9)
[2021-12-05 16:30] LABS: Microalbumin, Urine Quant. 6.29 mg/L (0.000-20.000)
== END | disposition home or self-care (01) ==
LOC: LAB SHORT 08:30 → LAB FUT 12-05 11:15
PROVIDERS: Internal Medicine Nephrology
DX: N18.30 Chronic kidney disease, stage 3 unspecified (principal); D63.1 Anemia in chronic kidney disease; N25.81 Secondary hyperparathyroidism of renal origin; E55.9 Vitamin D deficiency, unspecified; R76.9 Abnormal immunological finding in serum, unspecified; R94.5 Abnormal results of liver function studies; R94.6 Abnormal results of thyroid function studies; D51.8 Other vitamin B12 deficiency anemias; D50.9 Iron deficiency anemia, unspecified; E78.00 Pure hypercholesterolemia, unspecified
CPT/HCPCS: 81050; 82043; 82570; 84156

== ENCOUNTER 2022-02-26 04:10 | Observation (INO) | payer OTHER ==
[~2022-02-26] VITALS: Ht 182.9 cm; Wt 99.8 kg
[2022-02-26] MEDS ORDERED: FURO20 PO (04:30)
[2022-02-26] MEDS ORDERED: HYDROCODONE-AC1 EA11 PO (04:31)
[2022-02-26 04:49] LABS: BASOPHILS ABSOLUTE AUTO 0.08 K/mm3 (0.00-0.23); BASOPHILS PERCENT AUTO 1 % (0-2); EOSINOPHILS ABSOLUTE AUTO 0.24 K/mm3 (0.00-0.68); EOSINOPHILS PERCENT AUTO 3 % (0-6); Hemoglobin 10.4 g/dL (13.5-17.5); IMMATURE GRAN ABSOLUTE AUTO 0.04 K/mm3 (0.00-0.10); IMMATURE GRAN PERCENT AUTO 0 % (0-1); LYMPHOCYTES ABSOLUTE AUTO 2.21 K/mm3 (0.84-5.20); LYMPHOCYTES PERCENT AUTO 24 % (21-46); MONOCYTES ABSOLUTE AUTO 0.69 K/mm3 (0.16-1.47); MONOCYTES PERCENT AUTO 8 % (4-13); Mean Corpuscular HGB 20.1 pg (26.0-34.0); Mean Corpuscular HGB Conc 29.7 g/dL (31.5-36.5); Mean Corpuscular Volume 68 fL (80-100); Mean Platelet Volume 8.8 fL (9.1-12.4); NEUTROPHILS ABSOLUTE AUTO 5.78 K/mm3 (1.96-9.15); NEUTROPHILS PERCENT AUTO 64 % (41-73); Platelet Count 429 K/mm3 (150-400); RDW Coefficient Variation 20.6 % (11.7-14.2); RDW Standard Deviation 48.1 fL (35.1-46.3); Red Blood Cell Count 5.18 M/mm3 (4.30-5.90); White Blood Cell Count 9.04 K/mm3 (4.00-11.30)
[2022-02-26 05:09] LABS: Alanine Aminotransfer (ALT/SGP 26 U/L (12-78); Albumin, Blood 3.8 g/dL (3.4-5.0); Albumin/Globulin Ratio 0.9 (0.8-1.8); Alk Phos 62 U/L (50-136); Anion Gap 7 mmol/L (6-16); Aspartate Aminotrans (AST/SGOT 24 U/L (12-37); Bilirubin, Direct 0.1 mg/dL (0.0-0.3); Bilirubin, Indirect 0.5 mg/dL (0.1-0.7); Bilirubin, Total 0.6 mg/dL (0.1-1.0); Blood Urea Nitrogen 32 mg/dL (8-24); Bun/Creatinine Ratio 23.9 (12.0-20.0); CO2, Blood 27 mmol/L (21-32); Calcium, Blood 9.5 mg/dL (8.5-10.1); Chloride, Blood 103 mmol/L (98-108); Creatinine, Blood 1.34 mg/dL (0.60-1.20); Globulin, Blood 4.1 g/dL (2.2-4.0); Glomerular Filtration Rate 52 (60-); Glucose, Blood 252 mg/dL (70-99); Magnesium, Blood 3.1 mg/dL (1.6-2.4); Potassium, Blood 4.6 mmol/L (3.5-5.5); Sodium, Blood 137 mmol/L (136-145); Total Protein, Blood 7.9 g/dL (6.4-8.2)
--- NOTE | 2022-02-26 19:43 | NUR ---
0915- PT ADMITTED TO ROOM 303 FROM ED. A/O X3, PRESENT. PT AMBULATED FROM GOURNEY TO BED STEADY AND GOOD STRENGTH. DENIES CHEST PAIN. ORIENTED TO ROOM SET UP AND SARETY.
--- NOTE | 2022-02-26 19:45 | NUR ---
SUMMARY- PT A/O X3, FORGETFUL. INDEPENDANT IN ROOM AND STEADY ON FEET. PT MEDICATED WITH MIRILAX FOR CONSTIPATION, STATED HE HAD A SMALL LOOSE STOOL. TOLERATING ALL OF DIET, GOOD APPETITE. NO NAUSEA. NO CHEST PAIN ALL SHIFT. TELE WITH SR 80'S, OCC PAC, OCC PACED BEAT. PT HAS FAINT CX IN BASES. PLAN IS TO DIURESIS. IV LASIX. HAVING LG AMOUNTS OF CLEAR URINE. VSS.
[2022-02-27 02:18] LABS: BASOPHILS ABSOLUTE AUTO 0.07 K/mm3 (0.00-0.23); BASOPHILS PERCENT AUTO 1 % (0-2); EOSINOPHILS PERCENT AUTO 4 % (0-6); Hemoglobin 9.7 g/dL (13.5-17.5); IMMATURE GRAN ABSOLUTE AUTO 0.02 K/mm3 (0.00-0.10); IMMATURE GRAN PERCENT AUTO 0 % (0-1); LYMPHOCYTES ABSOLUTE AUTO 1.65 K/mm3 (0.84-5.20); LYMPHOCYTES PERCENT AUTO 21 % (21-46); MONOCYTES ABSOLUTE AUTO 0.71 K/mm3 (0.16-1.47); MONOCYTES PERCENT AUTO 9 % (4-13); Mean Corpuscular HGB 20.5 pg (26.0-34.0); Mean Corpuscular HGB Conc 30.3 g/dL (31.5-36.5); Mean Corpuscular Volume 68 fL (80-100); Mean Platelet Volume 9.3 fL (9.1-12.4); NEUTROPHILS ABSOLUTE AUTO 5.24 K/mm3 (1.96-9.15); NEUTROPHILS PERCENT AUTO 65 % (41-73); Platelet Count 416 K/mm3 (150-400); RDW Coefficient Variation 20.2 % (11.7-14.2); RDW Standard Deviation 47.8 fL (35.1-46.3); Red Blood Cell Count 4.73 M/mm3 (4.30-5.90); White Blood Cell Count 7.99 K/mm3 (4.00-11.30)
[2022-02-27 02:36] LABS: Magnesium, Blood 2.8 mg/dL (1.6-2.4)
[2022-02-27 02:37] LABS: Albumin, Blood 3.6 g/dL (3.4-5.0); Albumin/Globulin Ratio 0.9 (0.8-1.8); Bilirubin, Total 0.9 mg/dL (0.1-1.0); Bun/Creatinine Ratio 21.1 (12.0-20.0); Calcium, Blood 9.1 mg/dL (8.5-10.1); Creatinine, Blood 1.33 mg/dL (0.60-1.20); Globulin, Blood 3.8 g/dL (2.2-4.0); Potassium, Blood 3.9 mmol/L (3.5-5.5); Total Protein, Blood 7.4 g/dL (6.4-8.2)
--- NOTE | 2022-02-27 06:06 | NUR ---
SHIFT SUMMARY PT A/O X 2-3, FORGETFUL AND NEEDS REDIRECTED FREQUENTLY. PT UP AD-LETICIA IN ROOM AND HALLWAY, HAD DIFFICULTY SLEEPING AND ONLY NOTED TO REST IN SHORT INCREMENTS THROUGHOUT THE NIGHT. MED PER MAR FOR C/O GENERALIZED JOINT PAIN, PT REPORTS HX OF ARTHRITIS. TROPONIN LEVEL STARTING TO TREND DOWN, VSS, SR ON TELE. ANTICIPATE POSSIBLE D/C TO HOME TODAY.
[2022-02-27] MEDS ORDERED: DOCU100 PO (12:11)
[2022-02-27] MEDS ORDERED: FURO40 PO (12:11)
[2022-02-27] MEDS ORDERED: Milk Of Ma400 MG/5 M PO (12:12)
[2022-02-27] MEDS ORDERED: MIRALAX17 GM PO (12:12)
--- NOTE | 2022-02-27 15:06 | NUR ---
PT DISCHARGED WITH INSTRUCTION GIVEN TO PT AND . EDUCATION ON CHF AND DAILY FIBER AND BOWEL REGIMINE FOR CONSTIPATION. SENT HOME WITH BELONGINGS.PT INDEPENDANT AND AMBULATORY, ASKED TO ESCORT PT OUTSIDE TO PRIVATE CAR. STAFF ASSIST TO ELEVATOR, PT AND STEADY GOOD STRENGTH. PRIVATE CAR HOME.
== END 2022-02-27 14:28 | disposition home or self-care (01) ==
LOC: ER 04:10 → MEDS 04:11
PROVIDERS: Student in an Organized Health Care Education/Training Program; ADMIT Internal Medicine
DX: R77.8 Other specified abnormalities of plasma proteins (principal); K59.00 Constipation, unspecified; R14.0 Abdominal distension (gaseous); I11.0 Hypertensive heart disease with heart failure; I50.43 Acute on chronic combined systolic (congestive) and diastolic (congestive) heart failure; E66.9 Obesity, unspecified; G47.30 Sleep apnea, unspecified; I25.119 Atherosclerotic heart disease of native coronary artery with unspecified angina pectoris; E11.51 Type 2 diabetes mellitus with diabetic peripheral angiopathy without gangrene; E11.42 Type 2 diabetes mellitus with diabetic polyneuropathy; J44.9 Chronic obstructive pulmonary disease, unspecified; K21.9 Gastro-esophageal reflux disease without esophagitis; Z68.29 Body mass index [BMI] 29.0-29.9, adult; Z79.4 Long term (current) use of insulin; Z88.8 Allergy status to other drugs, medicaments and biological substances; Z87.891 Personal history of nicotine dependence; Z95.5 Presence of coronary angioplasty implant and graft
CPT/HCPCS: 36415; 71046; 74177; 80048; 80053; 80076; 82947; 83690; 83735; 83880; 84484; 85025; 93005; 93010; 93306; A9270; J1650; J1940; J3010; Q9967

== ENCOUNTER 2022-03-05 12:02 | Emergency (ER) | payer OTHER ==
[~2022-03-05] VITALS: Ht 182.9 cm; Wt 102.1 kg
[~2022-03-05 12:02] MED LIST changes: +FURO20 PO; +HYDROCODONE-AC1 EA11 PO
[2022-03-05 18:56] LABS: BASOPHILS ABSOLUTE AUTO 0.06 K/mm3 (0.00-0.23); BASOPHILS PERCENT AUTO 1 % (0-2); EOSINOPHILS ABSOLUTE AUTO 0.17 K/mm3 (0.00-0.68); EOSINOPHILS PERCENT AUTO 3 % (0-6); Hematocrit 34.3 % (37.0-53.0); Hemoglobin 9.9 g/dL (13.5-17.5); IMMATURE GRAN ABSOLUTE AUTO 0.02 K/mm3 (0.00-0.10); IMMATURE GRAN PERCENT AUTO 0 % (0-1); LYMPHOCYTES ABSOLUTE AUTO 0.94 K/mm3 (0.84-5.20); LYMPHOCYTES PERCENT AUTO 14 % (21-46); MONOCYTES PERCENT AUTO 7 % (4-13); Mean Corpuscular HGB Conc 28.9 g/dL (31.5-36.5); Mean Corpuscular Volume 69 fL (80-100); NEUTROPHILS ABSOLUTE AUTO 5.03 K/mm3 (1.96-9.15); NEUTROPHILS PERCENT AUTO 75 % (41-73); Platelet Count 397 K/mm3 (150-400); RDW Coefficient Variation 20.5 % (11.7-14.2); RDW Standard Deviation 49.5 fL (35.1-46.3); Red Blood Cell Count 4.96 M/mm3 (4.30-5.90); White Blood Cell Count 6.72 K/mm3 (4.00-11.30)
[2022-03-05 19:13] LABS: Albumin, Blood 3.8 g/dL (3.4-5.0); Bilirubin, Total 0.8 mg/dL (0.1-1.0); Calcium, Blood 9.2 mg/dL (8.5-10.1); Creatinine, Blood 1.26 mg/dL (0.60-1.20); Globulin, Blood 3.8 g/dL (2.2-4.0); Potassium, Blood 4.2 mmol/L (3.5-5.5); Total Protein, Blood 7.6 g/dL (6.4-8.2)
== END 2022-03-05 13:39 | disposition left against medical advice (07) ==
LOC: ER 12:02
PROVIDERS: Physician Assistant
DX: R06.02 Shortness of breath (principal); Z53.21 Procedure and treatment not carried out due to patient leaving prior to being seen by health care provider
CPT/HCPCS: 71045; 80053; 83880; 84484; 85025; 99283-25

== ENCOUNTER 2022-03-05 18:05 | Emergency (ER) | payer OTHER ==
[~2022-03-05] VITALS: Ht 182.9 cm; Wt 102.1 kg
[2022-03-05 19:52] LABS: Albumin, Blood 3.7 g/dL (3.4-5.0); Albumin/Globulin Ratio 0.9 (0.8-1.8); Bilirubin, Total 0.9 mg/dL (0.1-1.0); Bun/Creatinine Ratio 20.3 (12.0-20.0); Calcium, Blood 9.1 mg/dL (8.5-10.1); Creatinine, Blood 1.23 mg/dL (0.60-1.20); Globulin, Blood 3.9 g/dL (2.2-4.0); Potassium, Blood 4.8 mmol/L (3.5-5.5); Total Protein, Blood 7.6 g/dL (6.4-8.2)
== END 2022-03-05 22:32 | disposition home or self-care (01) ==
LOC: ER 18:05
PROVIDERS: Physician Assistant
DX: R07.89 Other chest pain (principal); R10.13 Epigastric pain; R77.8 Other specified abnormalities of plasma proteins; E11.9 Type 2 diabetes mellitus without complications; I25.2 Old myocardial infarction; I11.0 Hypertensive heart disease with heart failure; K21.9 Gastro-esophageal reflux disease without esophagitis; J44.9 Chronic obstructive pulmonary disease, unspecified; Z87.891 Personal history of nicotine dependence; I50.32 Chronic diastolic (congestive) heart failure; Z79.899 Other long term (current) drug therapy
CPT/HCPCS: 36415; 71045; 80053; 84484; 93005; 93010; 99285-25

== ENCOUNTER 2022-03-07 05:49 | Emergency (ER) | payer OTHER ==
[~2022-03-07] VITALS: Ht 182.9 cm; Wt 102.1 kg
[2022-03-07] MEDS ORDERED: SIMETHICONE125 MG PO (08:07)
== END 2022-03-07 08:44 | disposition home or self-care (01) ==
LOC: ER 05:49
DX: R10.13 Epigastric pain (principal); R14.0 Abdominal distension (gaseous); E11.40 Type 2 diabetes mellitus with diabetic neuropathy, unspecified; J44.9 Chronic obstructive pulmonary disease, unspecified; I50.30 Unspecified diastolic (congestive) heart failure; I11.0 Hypertensive heart disease with heart failure; I25.2 Old myocardial infarction; K21.9 Gastro-esophageal reflux disease without esophagitis; Z87.891 Personal history of nicotine dependence; Z79.899 Other long term (current) drug therapy
CPT/HCPCS: 99284; A9270

== ENCOUNTER 2022-03-12 06:03 | Emergency (ER) | payer OTHER ==
[~2022-03-12] VITALS: Ht 182.9 cm; Wt 106.6 kg
[~2022-03-12 06:03] MED LIST changes: +SIMETHICONE125 MG PO
[2022-03-12 06:38] LABS: Source, Urine Clean Catch
[2022-03-12 06:44] LABS: BASOPHILS ABSOLUTE AUTO 0.08 K/mm3 (0.00-0.23); BASOPHILS PERCENT AUTO 1 % (0-2); EOSINOPHILS ABSOLUTE AUTO 0.35 K/mm3 (0.00-0.68); EOSINOPHILS PERCENT AUTO 4 % (0-6); Hematocrit 33.1 % (37.0-53.0); Hemoglobin 9.6 g/dL (13.5-17.5); IMMATURE GRAN ABSOLUTE AUTO 0.03 K/mm3 (0.00-0.10); IMMATURE GRAN PERCENT AUTO 0 % (0-1); LYMPHOCYTES ABSOLUTE AUTO 1.83 K/mm3 (0.84-5.20); LYMPHOCYTES PERCENT AUTO 21 % (21-46); MONOCYTES ABSOLUTE AUTO 0.73 K/mm3 (0.16-1.47); MONOCYTES PERCENT AUTO 8 % (4-13); Mean Corpuscular HGB 20.1 pg (26.0-34.0); Mean Corpuscular Volume 69 fL (80-100); Mean Platelet Volume 9.2 fL (9.1-12.4); NEUTROPHILS ABSOLUTE AUTO 5.66 K/mm3 (1.96-9.15); NEUTROPHILS PERCENT AUTO 65 % (41-73); Platelet Count 418 K/mm3 (150-400); RDW Coefficient Variation 20.8 % (11.7-14.2); RDW Standard Deviation 50.3 fL (35.1-46.3); Red Blood Cell Count 4.78 M/mm3 (4.30-5.90); White Blood Cell Count 8.68 K/mm3 (4.00-11.30)
[2022-03-12 06:56] LABS: Albumin, Blood 3.8 g/dL (3.4-5.0); Albumin/Globulin Ratio 0.9 (0.8-1.8); Bilirubin, Total 1.1 mg/dL (0.1-1.0); Bun/Creatinine Ratio 15.9 (12.0-20.0); Creatinine, Blood 1.57 mg/dL (0.60-1.20); Globulin, Blood 4.1 g/dL (2.2-4.0); Total Protein, Blood 7.9 g/dL (6.4-8.2)
[2022-03-12 07:03] LABS: Bilirubin, Urine Neg (Neg); Blood, Urine Neg (Neg); Glucose Qualitative, Urine 4+ (Neg); Ketones, Urine Neg (Neg); Leukocyte Esterase, Urine Neg (Neg); Nitrite, Urine Neg (Neg); Protein, Urine 1+ (Neg); Specific Gravity, Urine 1.005 (1.003-1.022); Urobilinogen, Urine NORM (Normal)
[2022-03-12 07:20] LABS: Appearance, Urine Clear (Clear); Color, Urine Yellow (P-Yellow)
== END 2022-03-12 11:45 | disposition home or self-care (01) ==
LOC: ER 06:03
PROVIDERS: Student in an Organized Health Care Education/Training Program
DX: R77.8 Other specified abnormalities of plasma proteins (principal); K59.00 Constipation, unspecified; I13.0 Hypertensive heart and chronic kidney disease with heart failure and stage 1 through stage 4 chronic kidney disease, or unspecified chronic kidney disease; E11.22 Type 2 diabetes mellitus with diabetic chronic kidney disease; N18.9 Chronic kidney disease, unspecified; I50.9 Heart failure, unspecified; I25.10 Atherosclerotic heart disease of native coronary artery without angina pectoris; J44.9 Chronic obstructive pulmonary disease, unspecified; I25.2 Old myocardial infarction; K21.9 Gastro-esophageal reflux disease without esophagitis; E11.40 Type 2 diabetes mellitus with diabetic neuropathy, unspecified; Z88.8 Allergy status to other drugs, medicaments and biological substances; Z79.899 Other long term (current) drug therapy; Z79.4 Long term (current) use of insulin
CPT/HCPCS: 36415; 71045; 74018; 80053; 83735; 83880; 84484; 85025; 93005; 93010; 99284-25; A9270

== ENCOUNTER 2022-03-23 00:23 | Inpatient (IN) | payer OTHER ==
[~2022-03-23] VITALS: Ht 182.9 cm; Wt 97.5 kg
[2022-03-23 00:54] LABS: BASOPHILS ABSOLUTE AUTO 0.06 K/mm3 (0.00-0.23); BASOPHILS PERCENT AUTO 1 % (0-2); EOSINOPHILS PERCENT AUTO 3 % (0-6); Hematocrit 30.8 % (37.0-53.0); Hemoglobin 8.7 g/dL (13.5-17.5); IMMATURE GRAN ABSOLUTE AUTO 0.03 K/mm3 (0.00-0.10); IMMATURE GRAN PERCENT AUTO 0 % (0-1); LYMPHOCYTES ABSOLUTE AUTO 1.69 K/mm3 (0.84-5.20); LYMPHOCYTES PERCENT AUTO 22 % (21-46); MONOCYTES ABSOLUTE AUTO 0.72 K/mm3 (0.16-1.47); MONOCYTES PERCENT AUTO 9 % (4-13); Mean Corpuscular HGB 19.3 pg (26.0-34.0); Mean Corpuscular HGB Conc 28.2 g/dL (31.5-36.5); Mean Corpuscular Volume 68 fL (80-100); Mean Platelet Volume 9.2 fL (9.1-12.4); NEUTROPHILS ABSOLUTE AUTO 5.17 K/mm3 (1.96-9.15); NEUTROPHILS PERCENT AUTO 66 % (41-73); Platelet Count 429 K/mm3 (150-400); RDW Standard Deviation 49.7 fL (35.1-46.3); White Blood Cell Count 7.87 K/mm3 (4.00-11.30)
[2022-03-23 01:06] LABS: Albumin, Blood 3.7 g/dL (3.4-5.0); Bilirubin, Total 1.1 mg/dL (0.1-1.0); Bun/Creatinine Ratio 25.8 (12.0-20.0); Calcium, Blood 9.1 mg/dL (8.5-10.1); Creatinine, Blood 1.32 mg/dL (0.60-1.20); Globulin, Blood 3.6 g/dL (2.2-4.0); Potassium, Blood 4.2 mmol/L (3.5-5.5); Total Protein, Blood 7.3 g/dL (6.4-8.2)
[2022-03-23 04:54] LABS: International Normalized Ratio 1.09; Prothrombin Time Results 11.4 Sec (9.7-11.5)
[2022-03-23 05:06] LABS: Magnesium, Blood 2.7 mg/dL (1.6-2.4)
[2022-03-23 06:00] LABS: Creatine Kinase MB 10.8 ng/mL (0.0-3.6); Creatine Kinase MB Index 1.9 (0.0-4.0)
--- NOTE | 2022-03-23 09:36 | NUR ---
AM NOTE PATIENT IS PLEASANT, COOPERATIVE W CARE, A&O TO SELF, FAMILY, EVENT TO THE BEST OF HIS ABILITIES. PATIENT HAS DEMENTIA PER SPOUSE. TELE SR 80'S. SPO2>95% RA. PATIENT DOES REPORT CHEST PRESSURE B/L AND IN UPPER MID EPIGASTRIC REGION CONSTANT ONSET OF ADMISSION. PATIENT DOES REPORT OCCASSIONAL SOB. PATIENT DENIES NAUSEA, NUMBNESS/TINGLING. PATIENT REMAINED NPO AFTER MIDNIGHT FOR HIS PROCEDURE TODAY. PLAN TO TAKE HIM TO THE PHYSICIAN'S ASSISTANT THIS AM.
[2022-03-23 09:44] LABS: Influenza A, PCR NEGATIVE (NEGATIVE); Influenza B, PCR NEGATIVE (NEGATIVE); Resp Syncytial Virus, PCR NEGATIVE (NEGATIVE); SARS-Cov-2 (COVID-19) PCR, MMC NEGATIVE (NEGATIVE)
[2022-03-23 12:37] LABS: Creatine Kinase MB 8.6 ng/mL (0.0-3.6)
[2022-03-23] MEDS ORDERED: METF500 PO (13:24)
[2022-03-23] MEDS ORDERED: DOXE25 PO (13:25)
[2022-03-23] MEDS ORDERED: FISH OIL 1,2001 EAC7 PO (13:26)
[2022-03-23] MEDS ORDERED: RAYALDEE30 MCG PO (13:26)
--- NOTE | 2022-03-23 15:36 | NUR ---
Pt back from lab animal technologist at approx 1300; R groin site c/d/i, angioseal in place. No bruisng, bleeding or hematoma noted. Bed in low, bed alarm on, call light within reach. Pt confused, reoriented several times on lay flat and not sitting up or standing unitl site is recovered. Pt up and out of bed, at approx 1345, pt back to bed restraint placed to RLE as pt continues to move and kick up with leg, Dr Bailey notified, new order entered for zyprexa, adminisitered. Pt continues with rle restraint, will d/c when site fully recovered. R groin site remains c/d/i, no bruising, bleeding or hematoma noted. Clarified with Dr Dorado to restart heparin gtt, ok to restart, notified pharmacy, continue with new increased rate and bolus. Will continue to monitor.
--- NOTE | 2022-03-23 17:26 | NUR ---
SHIFT SUMMARY PATIENT REMAINED A&O TO SELF, FAMILY, EVENT T/O THE SHIFT TO THE BEST OF HIS ABILITIES. PATIENT WAS BROUGHT BACK FROM THE SHOE CLERK IN THE AFTERNOON. THE ACCES SITE IN HIS RIGHT GROIN REMAINED INTACT WITH NO PRESENCE OF CREPITUS, HEMATOMA, SWELLING, REDNESS, PAIN. PATIENT WAS PLACED IN RESTRAINTS TO HIS RIGHT ANKLE AND WAS GIVEN PRN RX FOR INCREASED ANXIETY HE WAS UNABLE TO LAY STILL AFTER HIS PROCEDURE. PATIENT NO LONGER REPORTS CP/PRESSURE, NAUSEA, SOB. TELE SR W PVCS IN 90S. SOP2 REMAINED >95% RA. PATIENT IS ON SBA AFTER HE GETS CLEARED FROM THE PROCEDURE PRECAUTIONS. HEPARIN DRIP INFUSING AT 17 UNITS/KG. WILL CONTINUE TO MONITOR UNTIL REPORT GIVEN TO THE ONCOMING NURSE.
--- NOTE | 2022-03-23 19:33 | NUR ---
I have reveiwed the nursing coordinator charting and am in agreement. Pt right groins site has been recovered per orders; no bleeding, bruising or hematoma noted. Restraints removed when leg restrictions ended. Vss. no other acute changes. report given to oncoming rn.
--- NOTE | 2022-03-23 22:12 | NUR ---
PT IS A&O TO SELF ONLY. NEEDS FREQUENT REDIRECTING TO HIS LOCATION AND WHY HE IS HERE. RIGHT GROIN SITE IS C/D/I, NO DRAINAGE NOTED, NO HARDNESS AROUND SITE NOTED. PT DENIES ANY PAIN AT SITE. MEDICATED FOR CHRONIC PAIN IN BACK AND LEFT HIP. PT UP VOIDING IN BATHROOM MULTIPLE TIMES, GIAT STEADY, POSTURE ERECT. RECEIVE ORDER FOR ANTI ANXIETY MEDICATION FROM DR. LYNN. CALL LIGHT IN REACH, CHAIR ALARM ON.
[2022-03-24 04:24] LABS: Hematocrit 30.8 % (37.0-53.0); Hemoglobin 8.7 g/dL (13.5-17.5); Mean Corpuscular HGB 19.3 pg (26.0-34.0); Mean Corpuscular HGB Conc 28.2 g/dL (31.5-36.5); Mean Corpuscular Volume 68 fL (80-100); Mean Platelet Volume 9.3 fL (9.1-12.4); Platelet Count 414 K/mm3 (150-400); RDW Coefficient Variation 21.1 % (11.7-14.2); RDW Standard Deviation 49.9 fL (35.1-46.3); White Blood Cell Count 7.53 K/mm3 (4.00-11.30)
[2022-03-24 04:45] LABS: Albumin, Blood 3.7 g/dL (3.4-5.0); Albumin/Globulin Ratio 1.1 (0.8-1.8); Bilirubin, Total 1.5 mg/dL (0.1-1.0); Bun/Creatinine Ratio 20.7 (12.0-20.0); Calcium, Blood 8.6 mg/dL (8.5-10.1); Creatinine, Blood 1.4 mg/dL (0.60-1.20); Globulin, Blood 3.5 g/dL (2.2-4.0); Potassium, Blood 3.9 mmol/L (3.5-5.5); Total Protein, Blood 7.2 g/dL (6.4-8.2)
--- NOTE | 2022-03-24 06:14 | NUR ---
PT WELL WITHIN FLUID RESTICTIONS LIMITS. HARRIS OUTPUT QUANTITIY SUFFICENT FOR SHIFT. BP NOW IN 110-120'S WITH MAP > 65. PT REPOSITIONED FOR COMFORT. SAFETY MEASURES IN PLACE.
--- NOTE | 2022-03-24 06:17 | NUR ---
PT CONTINUES TO BE FORGETFUL DURING SHIFT, MOVING FROM CHAIR TO BED APPROXIMATELY EVERY 30 MINUTES. MEDICATED FOR CHRONIC BACK PAIN SEE JAN. PT ATTEMPTED TO REDIRECT AND REORIENT. GROIN SITE REMAINS INTACT WITHOUT ANY DRIANAGE, INDERATION, OR BRUISING. CALL LIGHT IN REACH. CHAIR AND BED ALARMS ON.
--- NOTE | 2022-03-24 11:52 | NUR ---
SUNSHINE DC'D PER VERBAL ORDER FROM DR. EUCEDA.
[2022-03-24] MEDS ORDERED: ASPI81CH PO (14:12)
[2022-03-24] MEDS ORDERED: CLOP75 PO (14:12)
[2022-03-26] MEDS ORDERED: [UNRECOGNIZED DRUG - CODE] PO (15:10)
== END 2022-03-24 14:36 | disposition home or self-care (01) | DRG 281 ==
LOC: ER 00:23 → PCU 00:24
PROVIDERS: Internal Medicine Cardiovascular Disease; Student in an Organized Health Care Education/Training Program; ADMIT Internal Medicine
PROC: 4A023N7 Measurement of Cardiac Sampling and Pressure, Left Heart, Percutaneous Approach (ICD-10-PCS; principal; 2022-03-23)
PROC: B2111ZZ Fluoroscopy of Multiple Coronary Arteries using Low Osmolar Contrast (ICD-10-PCS; 2022-03-23)
DX: I21.4 Non-ST elevation (NSTEMI) myocardial infarction (principal); I47.2 Ventricular tachycardia; I50.22 Chronic systolic (congestive) heart failure; E11.42 Type 2 diabetes mellitus with diabetic polyneuropathy; I25.119 Atherosclerotic heart disease of native coronary artery with unspecified angina pectoris; J44.9 Chronic obstructive pulmonary disease, unspecified; I11.0 Hypertensive heart disease with heart failure; G47.33 Obstructive sleep apnea (adult) (pediatric); E78.5 Hyperlipidemia, unspecified; I24.9 Acute ischemic heart disease, unspecified; D53.9 Nutritional anemia, unspecified; E66.9 Obesity, unspecified; E87.70 Fluid overload, unspecified; Z20.822 Contact with and (suspected) exposure to COVID-19; I25.5 Ischemic cardiomyopathy; F03.90 Unspecified dementia, unspecified severity, without behavioral disturbance, psychotic disturbance, mood disturbance, and anxiety; E11.51 Type 2 diabetes mellitus with diabetic peripheral angiopathy without gangrene; K21.9 Gastro-esophageal reflux disease without esophagitis; M13.852 Other specified arthritis, left hip; M13.851 Other specified arthritis, right hip; M13.812 Other specified arthritis, left shoulder; M13.811 Other specified arthritis, right shoulder; Z68.30 Body mass index [BMI] 30.0-30.9, adult; Z90.49 Acquired absence of other specified parts of digestive tract; Z95.1 Presence of aortocoronary bypass graft; Z98.1 Arthrodesis status; Z85.46 Personal history of malignant neoplasm of prostate; Z95.0 Presence of cardiac pacemaker; Z88.8 Allergy status to other drugs, medicaments and biological substances; Z79.4 Long term (current) use of insulin; Z79.899 Other long term (current) drug therapy
CPT/HCPCS: 0241U; 36415; 71045; 76937; 80053; 82550; 82553; 82947; 83735; 84484; 85025; 85027; 85610; 85730; 93005; 93010; 93454; 96374; 96376; 99152; 99153; 99285-25; A9270; C1760; C1769; C1894; G0378; J1644; J1815; J2250; J3010; J7030; J7040; Q9967